=== PATIENT | female | born 1945 | race Caucasian/White ===

== ENCOUNTER 2019-03-05 18:11 | Inpatient (IN) | payer MEDICARE, MEDICAID, SELFPAY | END 2019-03-08 15:00 | DRG 479 | PROVIDERS: Admitting Provider Internal Medicine; Emergency Provider Emergency Medicine; PCP Internal Medicine Medical Oncology; Visit Provider Hospitalist | DX: S72.011A Unspecified intracapsular fracture of right femur, initial encounter for closed fracture (principal); W18.09XA Striking against other object with subsequent fall, initial encounter; J44.9 Chronic obstructive pulmonary disease, unspecified; R41.0 Disorientation, unspecified; T50.8X5A Adverse effect of diagnostic agents, initial encounter; H40.9 Unspecified glaucoma; D64.9 Anemia, unspecified; M19.90 Unspecified osteoarthritis, unspecified site; G62.9 Polyneuropathy, unspecified; Z87.891 Personal history of nicotine dependence; Z86.73 Personal history of transient ischemic attack (TIA), and cerebral infarction without residual deficits; Z79.82 Long term (current) use of aspirin; Z85.841 Personal history of malignant neoplasm of brain; Z85.118 Personal history of other malignant neoplasm of bronchus and lung | CPT/HCPCS: 36415; 70450; 71045; 71046; 72125; 73502; 73552; 80048; 80307; 81003; 84484; 85014; 85018; 85025; 85610; 85730; 88307; 88311; 93005; 94640; 96374; 97110; 97161; 97165; 97530; 99285; A9270; C1713; C1769; J0131; J1652; J1741; J2270; J2405; J2704; J3010; J3480; J7040 ==

== ENCOUNTER 2019-07-26 14:42 | Inpatient (IN) | payer MEDICARE, MEDICAID, SELFPAY ==
[2019-07-26] VITALS (7 sets, daily range): BP systolic 123–161; BP diastolic 68–90; PULSE 92–128; RESP 14–22; TEMP 36.6–37; O2SAT 92–98; BMI 22.4
--- NOTE | ~2019-07-26 | CT_ITS ---
EXAMINATION: CTA chest PE protocol DATE: 07/28/2019 11:54 INDICATION: Hypoxia. Rhonchi. Left subcapital femoral neck fracture. TECHNIQUE: Computed tomography angiography (CTA) of the chest was performed with 100 mL Omnipaque-350 intravenous contrast timed to evaluate the pulmonary arteries. Coronal maximum intensity projection 3D-reconstructions were created by the technologist. Automated exposure control and iterative reconst ruction technique were employed. Exam dose: 247.43 mGy-cm total exam DLP. COMPARISON: 07/26/2019 portable AP chest 06/14/2017 CT chest abdomen FINDINGS: There is diagnostic contrast enhancement of the pulmonary arteries and no evidence of pulmo nary embolism. Normal heart size. Small pericardial effusion. No thoracic aortic aneurysm or dissection is evident. There is chronic prominent right upper lung scarring and cavitation. Emphysematous changes are noted bilaterally. There is prominent patchy consolidation in the superior segment of the right lower lobe and in both l ower lobe posterior basilar segments in particular. There is mild dependent atelectasis or infiltrate of the left upper lobe. There is mild atelectasis or scarring at the base of the middle lobe. Left Port-A-Cath catheter in superior vena cava. No pleural effusion or pneumothorax. Diffuse osteopenia. 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 IMPRESSION: No CT evidence of pulmonary embolism Interval prominent bilateral lower lobe patchy consolidation involving particularly the right superio r segment and both lower lobe posterior segments Mild dependent infiltrate or atelectasis of left upper lobe and mild infiltrate or scarring at the ba se of the middle lobe Emphysema Small pericardial effusion Reviewed, dictated and finalized at Location [facility]. Reviewed, dictated and finalized at location B. IMPRESSION: No CT evidence of pulmonary embolism Interval prominent bilateral lower lobe patchy consolidation involving particul derik the right superior segment and both lower lobe posterior segments Mild dependent infiltrate or atelectasis of left upper lobe and mild infiltrate or scarring at the base of the middle lobe Emphysema Small pericardial effusion
--- NOTE | ~2019-07-26 | XR_ITS ---
EXAMINATION: XR surgery orthopedic DATE: 07/28/2019 16:33 INDICATION: Left hip pinning TECHNIQUE: 3 fluoroscopic spot images of the left hip were obtained in AP and lateral projections dur ing procedure performed by Dr. Cornell. Radiologist was not present for the imaging or procedure. The amount of fluoroscopy time used during this procedure was 3.7 minutes. COMPARISON: 07/26/2019 FINDINGS: 3 lag screws span an impacted subcapital fracture of the proximal left femur which is fixed with resi dual mild valgus and posterior angulation. There is mild widening of the left hip joint space which c ould be related to traction or the presence of a posttraumatic joint effusion. No other fractures emma ntified. Excreted contrast in the bladder likely from an earlier contrast enhanced chest CT. IMPRESSION: 1. Lag screw fixation of an impacted subcapital fracture of the proximal left femur, negative for pos toperative purposes. Reviewed, dictated and finalized at location A. IMPRESSION: 1. Lag screw fixation of an impacted subcapital fracture of the proximal left f emur, negative for postoperative purposes.
--- NOTE | ~2019-07-26 | US_ITS ---
EXAMINATION: US venous doppler LE EXAM DATE: 07/29/2019 11:11 INDICATION: Right atrial mass. TECHNIQUE: Multiple grayscale, color flow and Doppler images of the lower extremity deep venous syste ms bilaterally were obtained and reviewed. There is no prior study for comparison. FINDINGS: Right side: The right common femoral, femoral and profunda veins demonstrate normal color flow, respi ratory variation, augmentation and compressibility. Compressibility, color flow confirmed within the right popliteal, posterior tibial, peroneal, and greater saphenous veins. Left side: The left common femoral, femoral and profunda veins demonstrate normal color flow, respira tory variation, augmentation and compressibility. Compressibility, color flow confirmed within the l eft popliteal, posterior tibial, peroneal, and greater saphenous veins. IMPRESSION: 1. No lower extremity deep venous thrombosis bilaterally. Reviewed, dictated and finalized at location A.
--- NOTE | ~2019-07-26 | XR_ITS ---
XR elbow LT min 3V DATE: 07/26/2019 15:49 INDICATION: Fall. Posterior elbow abrasion. TECHNIQUE: 4 views COMPARISON: None FINDINGS: No fracture or dislocation or joint effusion. IMPRESSION: No fracture or dislocation or joint effusion Reviewed, dictated and finalized at location A.
--- NOTE | ~2019-07-26 | CT_ITS ---
EXAMINATION: CT brain wo con DATE: 07/26/2019 15:13 INDICATION: Fall. Confusion. Patient reportedly on blood thinners. TECHNIQUE: Computed tomography (CT) of the head was performed without intravenous contrast. The mA wa s adjusted according to patient size. Iterative reconstruction technique was employed. Exam dose: 52 9.67 mGy-cm total exam DLP. COMPARISON: 05/19/2019 MRI brain/brainstem 05/18/2019 CT brain FINDINGS: Chronic right parietal occipital infarct is again noted, as well as chronic small vessel is chemic changes of the cerebral white matter. Cerebral atherosclerosis. No intracranial mass lesion or hemorrhage, midline shift or mass effect. No apparent subdural or epid ural hematoma is noted. No skull fracture or bone destruction is evident. Included paranasal sinuses are unremarkable. There is opacification of mastoid air cells bilaterally, right greater than left. IMPRESSION: Chronic right parieto-occipital infarct Chronic small vessel ischemic changes of cerebral white matter Cerebral atherosclerosis Cerebral and cerebellar atrophy No acute intracranial abnormality Reviewed, dictated and finalized at Location [facility]. Reviewed, dictated and finalized at location A.
--- NOTE | ~2019-07-26 | XR_ITS ---
XR knee LT min 4V DATE: 07/26/2019 15:50 INDICATION: Left knee injury, abrasion, pain TECHNIQUE: 4 views including crosstable lateral COMPARISON: None FINDINGS: Diffuse osteopenia. No fracture or dislocation or joint effusion. No recent periosteal reaction or bone destruction. Ther e is chronic organized periosteal reaction along the femoral and tibial and fibular shafts which may be due to pulmonary osteoarthropathy and/or venous insufficiency. Joint spaces are preserved. No radiopaque intra-articular loose body or chondrocalcinosis. IMPRESSION: Osteopenia No fracture, dislocation or joint effusion Chronic organized periosteal reaction of the femoral, tibial and fibular shafts, suggesting chronic h ypertrophic pulmonary osteoarthropathy and/or venous insufficiency. Reviewed, dictated and finalized at location A. IMPRESSION: Osteopenia No fracture, dislocation or joint effusion Chronic organized periosteal reaction of the femoral, tibial and fibular shafts , suggesting chronic hypertrophic pulmonary osteoarthropathy and/or venous insu fficiency.
--- NOTE | ~2019-07-26 | XR_ITS ---
XR hip BI 2V w AP pelvis DATE: 07/26/2019 15:49 INDICATION: Fall. Bilateral hip pain, left greater than right. TECHNIQUE: AP pelvis. AP and crosstable lateral views of each hip. COMPARISON: 05/02/2019 pelvis and right hip FINDINGS: Diffuse osteopenia. The pubic symphysis and sacroiliac joints are intact. No pelvic fracture or bone destruction is evide nt. There are 3 pins through the proximal right femur for prior subcapital femoral neck fracture. There is new left subcapital femoral neck fracture on the left, with minimal displacement. IMPRESSION: New left subcapital femoral neck fracture Diffuse osteopenia Status post pinning of right subcapital femoral neck fracture Reviewed, dictated and finalized at location A.
--- NOTE | ~2019-07-26 | XR_ITS ---
XR chest 1V portable DATE: 07/26/2019 15:49 INDICATION: Fall. TECHNIQUE: Portable AP chest on 07/26/2019 at 1531 hours COMPARISON: 05/26/2021 view chest FINDINGS: Left-sided Port-A-Cath catheter tip overlies superior vena cava. Prominent right apical capping and right upper lobe volume loss and apparent scarring, as noted on . The lungs otherwise appear hyperinflated suggesting COPD. No interval pulmonary infiltrate or consolidation, pleural effusion or pulmonary vascular congestion or pneumothorax or other significant change since 05/26/2019 is noted. Diffuse osteopenia. IMPRESSION: No significant change since 05/26/2019 Reviewed, dictated and finalized at location A.
--- NOTE | ~2019-07-26 | MR_ITS ---
EXAMINATION: MR brain/brain stem wo con EXAM DATE: 07/29/2019 10:49 INDICATION: Confusion. Hip fracture. TECHNIQUE: Magnetic resonance imaging (MRI) of the brain/brain stem obtained without contrast. Reid al T1, axial diffusion, gradient echo (T2*), T1, T2, FLAIR sequences obtained. Comparison is made to prior examination from 05/18/2019. FINDINGS: There are scattered punctate foci of bilateral parieto-occipital lobe acute cortical infarc tions, likely emboli. Could be fat emboli given the left hip fracture. Cardiac embolic source also po ssible. No acute intraparenchymal mass or brain hemorrhage. There is punctate old left basal ganglia lacunar infarction. There is extensive microangiopathy. Moderate cerebral atrophy. Small old right oc cipital lobe infarction. No extra-axial collections. Flow voids are seen in the cerebral arteries on the T2 weighted sequences consistent with their expected patency. Patient has had bilateral cataract surgery. Bilateral mastoid effusions. IMPRESSION: 1. Scattered punctate acute bilateral parietal centered infarctions, consistent with embolic etiolog y. Consider fat emboli, and cardiac source. 2. Old small infarctions. 3. Microangiopathy and atrophy. Reviewed, dictated and finalized at location A. IMPRESSION: 1. Scattered punctate acute bilateral parietal centered infarctions, consisten t with embolic etiology. Consider fat emboli, and cardiac source. 2. Old small infarctions. 3. Microangiopathy and atrophy.
--- NOTE | ~2019-07-26 | XR_ITS ---
XR hand RT min 3V DATE: 07/26/2019 15:50 INDICATION: Fall. Fifth digit injury, laceration TECHNIQUE: 3 views COMPARISON: None FINDINGS: Diffuse osteopenia. No fracture or dislocation, periosteal reaction or bone destruction. No radiopaque soft tissue foreig n body is noted, other than a ring of the third digit. IMPRESSION: No fracture or dislocation is detected Reviewed, dictated and finalized at location A.
--- NOTE | ~2019-07-26 | CT_ITS ---
EXAMINATION: CT cervical spine wo con DATE: 07/26/2019 15:13 INDICATION: Fall. Head and neck injury. TECHNIQUE: Computed tomography (CT) of the cervical spine was performed without intravenous contrast. Automated exposure control and iterative reconstruction technique were employed. Exam dose: 89.95 m Gy-cm total exam DLP. COMPARISON: 03/05/2019 CT cervical spine FINDINGS: C1 and C2 are normally aligned and the odontoid process is intact. There is moderately severe degenerative disc disease at C3-4, C4-5 and C5-6. There is minimal anterolisthesis at C4-5. There is degenerative change at the apophyseal and uncovertebral joints particularly at C3-4, C4-5 an d C5-6. There is anterior and posterior fusion at C6-7. No fracture or dislocation or locked facet is evident. No prevertebral soft tissue swelling. IMPRESSION: No fracture or dislocation or locked facet. Extensive degenerative changes Reviewed, dictated and finalized at Location A. Reviewed, dictated and finalized at location A.
--- NOTE | 2019-07-26 14:48 | ED.FALL ---
HPI - Fall General Chief Complaint: Fall Stated Complaint: left hip pain Time Seen by Provider: 07/26/19 14:47 Source: patient and old records reviewed Mode of arrival: EMS Limitations: no limitations History of Present Illness HPI Narrative: The pt is a 73 y/o female who presents to the ED, via EMS, c/o a fall. Pt states that she was walking around her car when she tripped on her foot and fell. She states that she turned so she would not hit her face, but thinks she did not strike her head. She notes that she landed on her left side. She reports left hip pain and bilateral hand numbness, but denies neck pain. Pt notes that she does not take any anticoagulation therapy. She states that she has a Port-A-Cath for small-cell carcinoma, but she was diagnosed with this 5 years ago. Per old records, pt had a previous right hip fracture that occurred on 03/06/19. Pt was cared for and had right hip pinning performed by Dr. Morrissey. complaint: fall Fall from: standing Place fall occurred: street Context: tripped/slipped (Tripped over right foot) Associated symptoms (after fall): other (Bilateral hand numbness, left hip pain) Related Data Home Medications Medication Instructions Recorded Confirmed aspirin 81 mg tablet,delayed 81 mg PO DAILY 05/08/19 07/26/19 release Allergies Allergy/AdvReac Type Severity Reaction Status Date / Time tramadol Allergy Severe Unknown Verified 07/26/19 16:54 cyanocobalamin (vitamin B12) Allergy Intermediate HIVES Verified 07/26/19 16:54 Penicillins Allergy Intermediate HIVES Verified 07/26/19 16:54 codeine AdvReac Intermediate NAUSEA Verified 07/26/19 16:54 Review of Systems Review of Systems: All systems reviewed & are unremarkable except as noted in HPI and below Musculoskeletal: Musculoskeletal: Reports arthralgias (Left hip) and Denies neck pain Neurologic: Reports numbness (Bilateral hands) and Denies other (Head injury) [facility] Past Medical History Medical History (Updated 07/26/19 @ 17:55 by Loretta Whiteside MD) Anemia Arthritis Brain cancer Cataracts, bilateral Chronic headaches COPD (chronic obstructive pulmonary disease) CVA (cerebrovascular accident) DVT (deep venous thrombosis) Dyspnea Frequent falls Glaucoma H/O fracture of hip Hand fracture, right fracture HTN (hypertension) Lung cancer Peripheral neuropathy Pneumonia Port-A-Cath in place Seasonal allergies Stroke TIA (transient ischemic attack) UTI (urinary tract infection) Surgical History Surgical History (Updated 07/26/19 @ 15:00 by Uri Burt) Femoral neck fracture History of craniotomy removing tumor History of hip surgery Right hip pinning History of hysterectomy History of lung surgery History of tubal ligation Family History Family History Father Cerebrovascular accident Bladder cancer Mother Hypertension Sibling Hypertension Father Cerebrovascular accident Patient's father is Mother Family history of malignant neoplasm of kidney Acute myocardial infarction Other Cancer Social History Social History Social History: According to old records stated that she quit smoking in 2013. That she occasionally drinks 1 alcoholic beverage 1-2 drinks every 1-2 weeks. She tells me she occasionally drinks wine. She lives alone. From her old records patient has a daughter. And her sister is a durable power deputy commonwealth's attorney. Code status unknown. She is . From her old charts she is listed as a full code Smoking packs per day: 1.5 Smoking cigarettes per day: 30.0 Years smoked: 41 Smoking pack-years: 61.50 Smoking status: Former smoker Tobacco type: cigarettes Second hand tobacco smoke exposure: No Smoking end date: 05/14/13 Alcohol intake: current Substance use: unknown Gender identity (if verbalized by the patient):
--- NOTE | 2019-07-26 14:56 | ECG_ITS ---
Measurements Intervals [place] Rate: 93 P: 67 MI: 199 QRS: 57 QRSD: 80 T: 75 QT: 360 QTc: 450 Interpretive Statements SINUS RHYTHM POSSIBLE LEFT ATRIAL ENLARGEMENT BASELINE ARTIFACT- I, III, AVR, AVL BORDERLINE ECG Electronically Signed On 07-26-2019 15:51:49 CDT by Jorge Joshi D.O.
--- NOTE | 2019-07-26 15:17 | PC.NURSE ---
Patient in radiology at this time.
[2019-07-26] MEDS: ONDANSETRON INJ 4 MG/2 ML VIAL IV PUSH (15:51)
[2019-07-26] MEDS: MORPHINE SULFATE 4 MG/ML INJ 2 MG IV PUSH (15:51)
--- NOTE | 2019-07-26 15:56 | PC.NURSE ---
BLOOD SENT TO LAB, PT WAS GONE TO SCAN AT TIME OF ORDER AND JUST NOW RETURNED TO GET BLOOD AND SEND IT.
[2019-07-26 15:58] LABS: Basophils Percent Auto 0.5 % (0.2-1.2); Eosinophils Absolute Auto 0.1 K/mm3 (0-0.3); Eosinophils Percent Auto 0.9 % (0-4.4); Hematocrit 36.6 % (37.0-47.0); Hemoglobin 11.2 g/dL (12.0-15.0); Immature Granulocyte Absolute 0.03 K/mm3 (0.00-0.031); Immature Granulocyte Percent A 0.5 % (0-0.5); Lymphocytes Absolute Auto 1.82 K/mm3 (0.9-3.2); Lymphocytes Percent Auto 27.7 % (18.3-44.2); Mean Corpuscular HGB Conc 30.6 g/dl (32-36); Mean Corpuscular Hemoglobin 27.2 pg (26-34); Mean Corpuscular Volume 88.8 fl (80-100); Mean Platelet Volume 10.4 fl (7.4-10.4); Monocytes Absolute Auto 0.6 K/mm3 (0.1-0.6); Monocytes Percent Auto 9.1 % (2.6-8.5); Neutrophils Percent Auto 61.3 % (45.5-73.1); Platelet Count Result 296 k/mm3 (150-375); Red Blood Count 4.12 M/mm3 (4.2-5.4); Red Cell Distribution Width 15.4 % (11.5-14.5); White Blood Count 6.6 K/mm3 (4.5-10.0)
[2019-07-26 16:09] LABS: Prothrombin Time 12.4 Seconds (11.1-14.7)
[2019-07-26 16:10] LABS: Alanine Aminotransferase 17 U/L (4-35); Albumin Level 3.8 g/dL (3.5-5.1); Alkaline Phosphatase 75 U/L (38-126); Aspartate Amino Transferase 27 U/L (14-36); Bilirubin,Total 0.6 mg/dL (0.2-1.3); Blood Urea Nitrogen 14 mg/dL (7-17); Calcium 8.9 mg/dL (8.4-10.2); Carbon Dioxide 30 mmol/L (22-30); Chloride 101 mmol/L (98-107); Estimated Glomerular Filt Rate > 60; Glucose 92 mg/dL (65-105); Partial Thromboplastin Time 27.5 SECONDS (22.3-36.8); Sodium 137 mmol/L (137-145)
--- NOTE | 2019-07-26 17:52 | ADMGEN ---
This patient, Catia Chan, was admitted to 3 [facility] Surg Room 317-01. Patient/family oriented to hospital policies and general routines including ID bracelet, bed and alarms, visiting hours, pain management, procedures, bathroom and other care routines, personal items, smoking policy, room service/diet, and visiting hours. Valuables list has been completed. Information on how to activate the Rapid Response Team has been discussed. Patient/Family are encouraged to report perceived risks to care and to ask questions if they do not understand what they are told or what they should do.
[2019-07-26] MEDS: LACTATED RINGERS 1,000 ML 125 ML IV CONT (18:08)
[2019-07-26] MEDS: MORPHINE SULFATE 4 MG/ML INJ IV PUSH (20:42)
--- NOTE | 2019-07-26 21:37 | PM.IMHP ---
H&P: HPI History of Present Illness Chief complaint: left subcapital femoral neck fracture Narrative: Catia Chan is a 73 year old female who presented to the emergency department with complaints of falls. She has a history of falling. Her last admission she was here due to a fall. The patient stated this happened approximately 2 days ago when she is walking around her car she tripped and fell. She denies hitting her head. She tells me that she has been driving. Patient does not take any anticoagulation therapy she was diagnosed with small cell carcinoma approximately 5 years ago but is not on any medication now. Patient had a previous right hip fracture that occurred on 03/06/2019. A right hip pinning was performed per Dr. levin at that time. Patient was given Zofran and morphine in the emergency room. She has been falling asleep during this interview and has not been answering all the questions for me. She has also been started on IV fluids. Dr. Cornell has been consulted for the left hip fracture that was seen on her films. He agreed to consult repair. Date of service 07/26/2019 Review of Systems Review of Systems: All systems reviewed & are unremarkable except as noted in HPI and below ROS unobtainable: unobtainable due to mental status Constitutional: Constitutional: Reports as per HPI and Reports no additional constitutional complaints Eyes: Eyes: Reports as per HPI and Reports no additional eye complaints ENT: Reports system reviewed and no additional complaints, except as documented and Reports Normal hearing present Cardiovascular: Cardiovascular: Reports no additional cardiovascular complaints Respiratory: Respiratory: Reports no additional respiratory complaints and Reports no additional respiratory complaints Gastrointestinal: Gastrointestinal: Reports as per HPI and Reports no additional gastrointestinal complaints Musculoskeletal: Musculoskeletal: Reports no additional musculoskeletal complaints Integumentary/Breasts: Skin/Breast: Reports system reviewed and no additional complaints, except as docu and Reports as per HPI Neurologic: Reports system reviewed and no additional complaints, except as documented, Reports as per HPI and Reports Normal hearing present Psychiatric: Psychiatric: Reports no additional psychiatric complaints and Reports as per HPI Endocrine: Endocrine: Reports no additional endocrine complaints Hematologic/Lymphatic: Hematologic/Lymphatic: Reports no additional hematologic/lymphatic complaints Allergic/Immunologic: Allergic/Immunologic: Reports no additional allergic/immunologic complaints PMFSH Past Medical History Medical History Anemia Arthritis Brain cancer Cataracts, bilateral Chronic headaches COPD (chronic obstructive pulmonary disease) CVA (cerebrovascular accident) DVT (deep venous thrombosis) Dyspnea Frequent falls Glaucoma H/O fracture of hip Hand fracture, right fracture HTN (hypertension) Lung cancer Peripheral neuropathy Pneumonia Port-A-Cath in place Seasonal allergies Stroke TIA (transient ischemic attack) UTI (urinary tract infection) Surgical History Surgical History Femoral neck fracture History of craniotomy removing tumor History of hip surgery Right hip pinning History of hysterectomy History of lung surgery History of tubal ligation Family History Family History Father Cerebrovascular accident Bladder cancer Mother Hypertension Sibling Hypertension Father Cerebrovascular accident Patient's father is Mother Family history of malignant neoplasm of kidney Acute myocardial infarction Other Cancer Social History Social History (Updated 07/26/19 @ 21:50 by Dana Petit NP) Social History: According to old records
[2019-07-26] MEDS: levETIRAcetam ORAL SOL 500 MG/5 ML UDC 750 MG PO (22:16)
[2019-07-27] VITALS (14 sets, daily range): BP systolic 117–128; BP diastolic 60–78; PULSE 108–122; RESP 16–20; TEMP 37–37.3; O2SAT 88–95
[2019-07-27] MEDS: MORPHINE SULFATE 4 MG/ML INJ IV PUSH ×2 (02:08→07:55)
[2019-07-27] MEDS: LACTATED RINGERS 1,000 ML 125 ML IV CONT (02:10)
[2019-07-27 06:14] LABS: Basophils Percent Auto 0.1 % (0.2-1.2); Eosinophils Percent Auto 0.2 % (0-4.4); Hematocrit 36.9 % (37.0-47.0); Hemoglobin 11.5 g/dL (12.0-15.0); Immature Granulocyte Absolute 0.04 K/mm3 (0.00-0.031); Immature Granulocyte Percent A 0.3 % (0-0.5); Lymphocytes Absolute Auto 0.79 K/mm3 (0.9-3.2); Lymphocytes Percent Auto 5.8 % (18.3-44.2); Mean Corpuscular HGB Conc 31.2 g/dl (32-36); Mean Corpuscular Hemoglobin 27.3 pg (26-34); Mean Corpuscular Volume 87.4 fl (80-100); Mean Platelet Volume 9.6 fl (7.4-10.4); Monocytes Absolute Auto 0.7 K/mm3 (0.1-0.6); Monocytes Percent Auto 4.9 % (2.6-8.5); Neutrophils Absolute Auto 12.2 K/mm3 (1.3-6.7); Neutrophils Percent Auto 88.7 % (45.5-73.1); Platelet Count Result 244 k/mm3 (150-375); Red Blood Count 4.22 M/mm3 (4.2-5.4); Red Cell Distribution Width 15.3 % (11.5-14.5); White Blood Count 13.7 K/mm3 (4.5-10.0)
[2019-07-27 06:25] LABS: Alanine Aminotransferase 18 U/L (4-35); Albumin Level 3.3 g/dL (3.5-5.1); Alkaline Phosphatase 78 U/L (38-126); Aspartate Amino Transferase 21 U/L (14-36); Bilirubin,Total 1.1 mg/dL (0.2-1.3); Blood Urea Nitrogen 11 mg/dL (7-17); Calcium 8.4 mg/dL (8.4-10.2); Carbon Dioxide 28 mmol/L (22-30); Chloride 102 mmol/L (98-107); Estimated CRCL calculation 60 ml/min; Estimated Glomerular Filt Rate > 60; Glucose 120 mg/dL (65-105); Magnesium 1.7 mg/dL (1.6-2.3); Potassium 4.3 mmol/L (3.4-5.0); Sodium 135 mmol/L (137-145)
[2019-07-27] MEDS: MAGNESIUM SULF 2 GM/WATER 50ML 2 GM/50 ML BAG IVPB (09:08)
[2019-07-27] MEDS: levETIRAcetam IV 750 MG in DEXTROSE 5% 100 ML 430 MG IVPB ×2 (10:25→21:14)
--- NOTE | 2019-07-27 10:28 | PM.IMPN ---
Progress Note: A&P Assessment and Plan (1) Closed fracture of neck of left femur: Qualifiers: Encounter type: initial encounter Qualified Code(s): S72.002A - Fracture of unspecified part of neck of left femur, initial encounter for closed fracture Code(s): S72.002A - Fracture of unspecified part of neck of left femur, initial encounter for closed fracture Status: Acute Assessment and Plan: Left subcapital femoral neck fracture after a fall. It is reported she was walking outside to her car when she tripped and fell. Would recommend holding narcotics for now as she is lethargic this morning. Dr Cornell consulted - appreciate recommendations. (2) Focal seizure: Code(s): R56.9 - Unspecified convulsions Status: Chronic Assessment and Plan: Continue Keppra. Seizure precautions. (3) Stroke: Code(s): I63.9 - Cerebral infarction, unspecified Status: Chronic Assessment and Plan: History of old CVA. CT shows chronic right parietal-occipital infarct. ASA held in light of possible surgical intervention. (4) Murmur: Code(s): R01.1 - Cardiac murmur, unspecified Status: Acute Assessment and Plan: With sinus tachycardia. Echocardiogram ordered. (5) Altered mental status: Code(s): R41.82 - Altered mental status, unspecified Status: Acute Assessment and Plan: CT brain with no acute intracranial abnormalities. History of old stroke. Vital signs are stable aside from sinus tachycardia which may be secondary to pain from fracture. Obtain urine culture. May be related to narcotics. Hold off on narcotics for now. Records indicate she may be experiencing signs of dementia. She is known to live at home and has been found unresponsive in the past. A note from PCP last month 6 suggests she has been getting more confused at times, even hallucinating, unreliable about taking medications, assisted-living was discussed and was not felt to be safe for her to be living home alone. (6) COPD (chronic obstructive pulmonary disease): Code(s): J44.9 - Chronic obstructive pulmonary disease, unspecified Status: Chronic Assessment and Plan: Does not appear to be on any maintenance inhalers. CXR shows hyperinflation without consolidation or effusions. Continue supplemental O2 as needed to keep oxygen saturations > 90%. Nebulized bronchodilators with atrovent and xopenex. Subjective Date/time seen: 07/27/19 0915 Interval history: Patient is a 73yo F admitted with acute left subcapital femoral neck fracture. She is asleep time my exam and a bit difficult to arouse, but she does wake up look at me. Moaning, does not answer questions. Review of Systems Review of Systems: ROS unobtainable: unobtainable due to mental status Exam Narrative: Exam Narrative: General: Female resting supine in bed in no acute distress, lethargic. HEENT: Normocephalic, oral mucosa tacky. Cardiovascular: Rhythm is regular. Rate is tachycardic. Telemetry review shows sinus tachycardia HR 110 at time my exam. Respiratory: Decreased breath sounds anterior and laterally due to poor effort. Respirations even and nonlabored. Tolerating room air. Abdomen: Soft, non-tender, non-distended, bowel sounds present. Extremities: Peripheral pulses intact. No edema or erythema. Neuro: Unable to assess. Patient is sleepy but wakes to verbal stimuli and touch. She woke up and moans, not able to answer any of my questions. Objective Data Vital Signs Vital Signs: Last Vital Signs Temp 98.6 F 07/27/19 06:00 Pulse 122 H 07/27/19 06:00 Resp 16 07/27/19 06:00 BP 128/78 07/27/19 06:00 Pulse Ox 94 07/27/19 06:00 Intake/Output Intake/Output: Intake & Output 07/24/19 0
[2019-07-27 10:52] LABS: Add Urine Microscopic? YES; Appearance Urine Clear (Clear); Bacteria Urine Trace /hpf; Bilirubin Urine Negative (Negative); Blood Urine Negative (Negative); Color Urine Yellow (Yellow); Glucose Urine UA Negative (Negative); Ketones Urine Negative (Negative); Leukocyte Esterase Ur Negative LEU/UL (Negative); Mucus Urine Few /lpf; Nitrate Urine Negative (Negative); Protein Urine 1+ mg/dL (Negative); Specific Grav Ur 1.018 (1.001-1.035); Squamous Epithelial Cell Urine Rare /hpf (Few)
[2019-07-27] MEDS: LACTATED RINGERS 1,000 ML 80 ML IV CONT (12:54)
[2019-07-27] MEDS: IPRATROPIUM BR 0.02% INH SOLN 0.5 MG/2.5 ML VIAL INHALATION ×2 (15:19→22:00)
--- NOTE | 2019-07-27 16:16 | PM.PNORT ---
Progress Note: A&P Additional Plan PATIENT SEEN AND CONSULT DICTATED. BRIEF, SHE IS A 73 YO FEMALE WITH HX OF LEFT FEMORAL NECK FRACTURE WITH VALGUS IMPACTION. SHE WILL REQUIRE PERCUTANEOUS PINNING LEFT FEMORAL NECK ONCE CLEARED BY MEDICINE. I SPOKE TO THE SISTER TODAY WHO IS THE POA OF THE PATIENT. WE DISCUSSED THE PROCEDURE IN DETAIL AND THE RISKS OF SURGERY. SHE AGREES WITH THE PLAN OF TREATMENT. WE WILL PROCEED. Time Spent With Patient Time with patient: 15 - 25 minutes Subjective Subjective Date/Time Seen: 07/27/19 16:16 Objective Data Vital Signs Vital Signs: Vital Signs - 24 hr 07/26/19 16:30 07/26/19 17:28 07/26/19 18:02 Temperature Pulse Rate 98 102 H 111 H Respiratory Rate 20 18 22 H Blood Pressure 130/81 135/90 123/73 Pulse Oximetry 92 93 95 07/26/19 20:00 07/26/19 21:28 07/27/19 00:00 Temperature 37.0 C Pulse Rate 128 H 124 H 115 H Respiratory Rate 18 Blood Pressure 126/68 Pulse Oximetry 93 07/27/19 04:00 07/27/19 06:00 07/27/19 08:00 Temperature 37.0 C Pulse Rate 119 H 122 H 118 H Respiratory Rate 16 Blood Pressure 128/78 Pulse Oximetry 94 07/27/19 12:00 07/27/19 14:00 07/27/19 15:25 Temperature 37.3 C Pulse Rate 111 H 118 H 110 H Respiratory Rate 16 20 Blood Pressure 117/60 Pulse Oximetry 88 L 07/27/19 15:32 Temperature Pulse Rate 115 H Respiratory Rate 20 Blood Pressure Pulse Oximetry Intake/Output Intake/Output: Intake & Output 07/24/19 07/25/19 07/26/19 07/27/19 23:59 23:59 23:59 23:59 Intake Total 100 2207.5 Output Total 250 Balance 100 1957.5 Meds/Results Medications: Active Medications Generic Name Dose Route Start Last Admin Trade Name Freq PRN Reason Stop Dose Admin Acetaminophen 1,000 mg in 100 mls @ 400 mls/hr 07/26/19 16:58 07/27/19 15:35 Ofirmev 1,000 Mg Ivpb IVPB 07/27/19 16:59 400 mls/hr Q6H PRN Administration Mild Pain (1-3) or Fever Lactated Ringer's 1,000 mls @ 80 mls/hr 07/26/19 17:00 07/27/19 12:54 Lr - Lactated Ringers Iv IV CONT 80 mls/hr .[id number] JAYASHREE Administration Levetiracetam 750 mg/ Dextrose 107.5 mls @ 430 mls/hr 07/27/19 10:15 07/27/19 10:40 IVPB Infused Q12HR JAYASHREE Infusion Ipratropium Wheeler 0.5 mg 07/27/19 14:00 07/27/19 15:19 Atrovent Neb INHALATION 0.5 mg Q6HRT JAYASHREE Administration Levalbuterol HCl 1.25 mg 07/27/19 14:00 07/27/19 15:19 Xopenex 1.25 Mg/0.5 Ml INHALATION 1.25 mg Q6HRT JAYASHREE Administration Morphine Sulfate 4 mg 07/26/19 16:58 07/27/19 07:55 Morphine Sulfate Inj IV PUSH 4 mg Q2H PRN Administration Pain Rated 7-10 Ondansetron HCl 4 mg 07/26/19 16:58 Zofran Inj IV PUSH Q4H PRN Nausea Radiology Results: ITS Impressions Head CT 07/26/19 15:37 IMPRESSION: Chronic right parieto-occipital infarct Chronic small vessel ischemic changes of cerebral white matter Cerebral atherosclerosis Cerebral and cerebellar atrophy No acute intracranial abnormality Cervical Spine CT 07/26/19 15:48 IMPRESSION: No fracture or dislocation or locked facet. Extensive degenerative changes Chest X-Ray 07/26/19 16:19 IMPRESSION: No significant change since 05/26/2019 Hip/Pelvis X-Ray 07/26/19 16:21 IMPRESSION: New left subcapital femoral neck fracture Diffuse osteopenia Status post pinning of right subcapital femoral neck fracture Knee X-Ray 07/26/19 16:23 IMPRESSION: Osteopenia No fracture, dislocation or joint effusion Chronic organized periosteal reaction of the femoral, tibial and fibular shafts, suggesting chronic hypertrophic pulmonary osteoarthropathy and/or venous insufficiency. Elbow X-Ray 07/26/19 16:26 IMPRESSION: No fracture or dislocation or joint effusion Hand X-Ray 07/26/19 16:26 IMPRESSION: No fracture or dislocation is detected Labs Labs: Laboratory Results - last 24 hr 07/27/19 07/27/19 03
--- NOTE | 2019-07-27 19:45 | HP_ITS ---
DATE OF SERVICE: 07/26/2019 HISTORY OF PRESENT ILLNESS: This is a 73-year-old female who fell injuring her left hip. She was sent to the emergency department, diagnosed with a left femoral neck fracture, which was minimally displaced. She was then sent to the floor and admitted by medicine services and orthopedic consultation was requested. She has a history of right subcapital fracture that was fixed by Dr. Sapp in February. She currently complains of only left hip pain. Denies any right hip pain. Denies any back pain or any neck pain. Denies any other lower or upper extremity pain aside from the left hip. PAST MEDICAL HISTORY: Anemia, arthritis, breast cancer, cataracts, COPD, headaches, DVT, stroke, shortness of breath, frequent falls, glaucoma, right hip fracture, hypertension, lung cancer, pneumonia, allergies, urinary tract infection. FAMILY HISTORY: Bladder cancer, hypertension, stroke, myocardial infarct. SOCIAL HISTORY: She does not smoke. She quit in 2013. She drinks on occasion. She lives on her own. REVIEW OF SYSTEMS: She denies currently any severe shortness of breath or chest pain. Denies any abdominal pain, nausea, vomiting, diarrhea, or headache. She complains only of left hip pain. PHYSICAL EXAMINATION: The left hip was examined. She has pain with minimal passive motion of the left hip. She has tenderness over the greater trochanter. She has no masses in the thigh. She has no tenderness below the hip and thigh. The knee is nontender. There is no effusion. She has adequate range of motion and no discomfort in the knee, otherwise stable exam. Tib-fib, foot and ankle are nontender. There is no deformity. She dorsi and plantar flexes the left foot with some weakness in dorsiflexion. Dorsalis pedis pulse 2+, posterior tib pulse 2+. The right hip was examined. She has a well-healed scar on the lateral side of the hip region. She has no tenderness in the hip region. She has no pain with passive and active range of motion. She has no thigh masses and the femur is nontender. She has no tenderness to the knee. The knee range of motion is smooth without any pain. She has otherwise stable ligamentous exam. The tib-fib, foot and ankle are nontender. There are no deformities. Her dorsalis pedis pulses 2+, posterior tib pulse 2+. Sensation is intact. Upper extremity examination, she elevates both upper extremities. She has no tenderness in the shoulders, arms, elbows, forearms, wrist, and hands. The neck is nontender. Thoracic spine, lumbar spine, sacroiliac region and coccyx are nontender. IMAGING: X-rays show a valgus impacted left femoral neck fracture. PLAN: Plan is for percutaneous pinning of the left femoral neck. She has a history of seizure disorder and some cardiovascular disorder, so she needs to be cleared by medicine first. Plan will be to perform this tomorrow once she is cleared by medical services. I talked to the patient and she understands and is in agreement with current care. We discussed the possibility of DVT and PE. We also discussed the possibility of infection, nonunion and avascular necrosis and the possibility of further surgery, if she develops avascular necrosis to the femoral head, which would consist of the hip replacement. She understands this as well. We will go ahead and proceed once she is cleared. Josr I MT: Rina
[2019-07-28] VITALS (27 sets, daily range): BP systolic 80–129; BP diastolic 50–78; PULSE 100–132; RESP 16–24; TEMP 36.6–37.5; O2SAT 87–98
--- NOTE | 2019-07-28 | ECHO_ITS ---
Patient Info Name: Catia Chan Age: 73 years : 1945 Gender: Female Ht: 63 in Wt: 126 lbs BSA: 1.60 m2 HR: 109 bpm BP: 94 / 50 mmHg Technical Quality: Fair Exam Date: 07/28/2019 10:42 AM Exam Location: [facility] Patient Status: Inpatient Admit Date: 07/26/2019 Staff Ordering Physician: Dana Petit NP Marine Firer: Uri Alejandre RDCS, RT Attending Provider: Verona Blackman PA-C Referring Physician: Marisabel SOLIS; Exam Type: CA echo doppler color flow Study Info Indications R01.1 - Cardiac murmur, unspecified Complete two-dimensional, color flow and Doppler transthoracic echocardiogram is performed. Summary 1. Left ventricular chamber dimension is normal. 2. Left ventricular systolic function is normal, estimated at 60-65%. 3. The left ventricular diastolic function is grade I diastolic dysfunction. 4. E/e' 10 is mildly elevated. 5. Large mobile echogenic mass that is not well characterized noted in right atrium. Consider MACARENA for better visualization. 6. There is mild to moderate tricuspid valve regurgitation. 7. Moderate pulmonary hypertension, estimated pulmonary arterial systolic pressure is 56 mmHg. 8. Dilated inferior vena cava with <50% collapse upon inspiration consistent with significantly elevated right atrial pressure, 15 mmHg. Left Ventricle E/e' 10 is mildly elevated. Left ventricular chamber dimension is normal. Left ventricular systolic function is normal, estimated at 60-65%. The left ventricular diastolic function is grade I diastolic dysfunction. Right Ventricle Right ventricular chamber dimension is normal. Right ventricular systolic function is normal. Left Atria Left atrial chamber dimension is normal. Right Atria Large mobile echogenic mass that is not well characterized noted in right atrium. Consider MACARENA for better visualization. Right atrial chamber dimension is not well visualized. Aortic Valve Cannot determine number of aortic valve leaflets. The aortic valve is not well visualized. There is no aortic valve stenosis. There is no aortic valve regurgitation. Pulmonic Valve The pulmonic valve is not well visualized. Mitral Valve There is no mitral valve stenosis. There is no mitral valve regurgitation. Tricuspid Valve There is mild to moderate tricuspid valve regurgitation. Moderate pulmonary hypertension, estimated pulmonary arterial systolic pressure is 56 mmHg. Pericardium/Pleural There is small circumferential pericardial effusion. Inferior Vena Cava Dilated inferior vena cava with <50% collapse upon inspiration consistent with significantly elevated right atrial pressure, 15 mmHg. Aorta The aortic root size at the sinus of Valsalva is normal. Left Ventricular Outflow Tract Name Value Normal LVOT 2D LVOT Diameter 2.1 cm LVOT Doppler LVOT Peak Gradient 3 mmHg LVOT Mean Gradient 1 mmHg LVOT VTI 14 cm LVOT VTI/AV VTI Ratio 0.8 LVOT Stroke Volume 48 ml LVOT
[2019-07-28] MEDS: IPRATROPIUM BR 0.02% INH SOLN 0.5 MG/2.5 ML VIAL INHALATION ×3 (02:57→20:36)
[2019-07-28] MEDS: LACTATED RINGERS 1,000 ML 80 ML IV CONT (03:23)
[2019-07-28 06:19] LABS: Basophils Percent Auto 0.3 % (0.2-1.2); Eosinophils Percent Auto 0.1 % (0-4.4); Hematocrit 31.6 % (37.0-47.0); Hemoglobin 9.8 g/dL (12.0-15.0); Immature Granulocyte Absolute 0.06 K/mm3 (0.00-0.031); Immature Granulocyte Percent A 0.4 % (0-0.5); Lymphocytes Absolute Auto 0.66 K/mm3 (0.9-3.2); Lymphocytes Percent Auto 4.6 % (18.3-44.2); Mean Corpuscular Hemoglobin 27.3 pg (26-34); Mean Platelet Volume 10.3 fl (7.4-10.4); Monocytes Absolute Auto 0.6 K/mm3 (0.1-0.6); Neutrophils Percent Auto 90.6 % (45.5-73.1); Platelet Count Result 182 k/mm3 (150-375); Red Blood Count 3.59 M/mm3 (4.2-5.4); Red Cell Distribution Width 15.8 % (11.5-14.5); White Blood Count 14.3 K/mm3 (4.5-10.0)
[2019-07-28] MEDS: levETIRAcetam IV 750 MG in DEXTROSE 5% 100 ML 430 MG IVPB ×2 (08:39→21:08)
[2019-07-28] MEDS: MAGNESIUM SULF 2 GM/WATER 50ML 2 GM/50 ML BAG IVPB (09:09)
[2019-07-28 10:50] LABS: Glucose Point of Care 101 (65-105)
--- NOTE | 2019-07-28 10:57 | PM.IMPN ---
Progress Note: A&P Assessment and Plan (1) Altered mental status: Qualifiers: Altered mental status type: unspecified Qualified Code(s): R41.82 - Altered mental status, unspecified Code(s): R41.82 - Altered mental status, unspecified Status: Acute Assessment and Plan: CT brain with no acute intracranial abnormalities. History of old stroke. UA negative nitrite, negative esterase. Urine culture pending. Differential includes stroke (history of prior stroke), metabolic encephalopathy (narcotics, ?aspiration) superimposed on a baseline of dementia. Afebrile, mild leukocytosis. CXR on arrival with chronic findings and no consolidations/effusions. Plan: Stat CTA to evaluate for a new pneumonia/aspiration? MRI brain. Ammonia, ABG. Blood sugar is 101. Discussed case with Dr Olmedo. - Confirmed DNR code status with patient's sister, VERONICA. Edit: Contacted patient's sister and POA, Berenice, via telephone this afternoon for an update on the patient's condition. Discussed at length the severity of her condition, she verbalized understanding, and all questions answered to her satisfaction at this time. Berenice's cell number is [phone]. (2) Closed fracture of neck of left femur: Qualifiers: Encounter type: initial encounter Qualified Code(s): S72.002A - Fracture of unspecified part of neck of left femur, initial encounter for closed fracture Code(s): S72.002A - Fracture of unspecified part of neck of left femur, initial encounter for closed fracture Status: Acute Assessment and Plan: Left subcapital femoral neck fracture after a fall. It is reported she was walking outside to her car when she tripped and fell. No narcotics have been given since early yesterday morning, she is still altered this AM. See above. Dr Cornell consulted - discussed case with him today. Left hip pinning this afternoon. (3) Pneumonia: Qualifiers: Laterality: bilateral Lung location: unspecified part of lung Pneumonia type: due to unspecified organism Qualified Code(s): J18.9 - Pneumonia, unspecified organism Code(s): J18.9 - Pneumonia, unspecified organism Status: Acute Assessment and Plan: Chest XR on arrival with no consolidation, chest CTA today with new interval prominent bilateral patchy consolidation, no PE. Aspiration? Patient's sister reports she has a history of dysphagia. Blood cultures obtained (only 1 was obtained prior to going to pre-op). Started IV vancomycin and ertapenem. Continue nebulized bronchodilators and pulmozyme, supplemental O2. (4) Right atrial mass: Code(s): I51.89 - Other ill-defined heart diseases Status: Acute Assessment and Plan: Echocardiogram demonstrated a large mobile echogenic mass that is not well characterized noted in the right atrium. Cardiology consulted -appreciate recommendations. (5) COPD (chronic obstructive pulmonary disease): Qualifiers: COPD type: unspecified COPD Qualified Code(s): J44.9 - Chronic obstructive pulmonary disease, unspecified Code(s): J44.9 - Chronic obstructive pulmonary disease, unspecified Status: Chronic Assessment and Plan: Does not appear to be on any maintenance inhalers. CXR on arrival showed hyperinflation without consolidation or effusions and other chronic changes. Continue supplemental O2 as needed to keep oxygen saturations > 90%. Nebulized bronchodilators with atrovent and xopenex. Pulmozyme. CTA chest. (6) Lung cancer: Qualifiers: Laterality: unspecified laterality Lung location: unspecified part of lung Qualified Code(s): C34.90 - Malignant neoplasm of unspecified part of unspecified bronchus or lung Code(s): C34.90 - Malignant neoplasm of unspecified part of unspecified bronch
[2019-07-28 11:02] LABS: Alveolar/Arterial O2 Gradient 118.9 mmHg; Base Excess ABG 0.5 mEq/l (+/-2.0); Fractional Inspired Oxygen 32 %; HCO3 ABG 24.6 mEq/l (22.0-26.0); Oxygen Content ABG 14.7 %vol (16.0-22.0); Oxygen Saturation ABG 93.5 % (95.0-100.0); Oxyhemoglobin 91.7 % THb (90.0-100.0); PCO2 ABG 37.7 mmHg (35.0-45.0); PO2 ABG 65.2 mmHg (80.0-100.0); PO2 FiO2 Ratio Arterial Blood 2.04 %; Total Hemoglobin 11.4 g/dL (12.0-18.0); pH ABG 7.432 (7.350-7.450)
[2019-07-28 11:04] LABS: Device NASAL CANNULA; Modified Allen's Test Pass; Site Drawn RIGHT RADIAL
[2019-07-28 11:42] LABS: Ammonia < 9 umol/L (9-30)
--- NOTE | 2019-07-28 13:24 | WPDANESEPP ---
Anes - Eval Pre Procedure Procedure: Operation Date: 07/28/19 15:00 Proposed Procedures p LEFT HIP PINNING - Ministerio Cornell MD Date/Time: 07/28/19 13:24 Pre Op Diagnosis: left subcapital femoral neck fracture Patient Data Age: 73 Gender: F Height: 1.6 m Weight: 57.6 kg Last Vital Signs Temp 36.6 C 07/28/19 06:00 Pulse 114 H 07/28/19 10:05 Resp 20 07/28/19 10:05 BP 104/50 L 07/28/19 11:17 Pulse Ox 94 07/28/19 09:59 Allergies Allergy/AdvReac Type Severity Reaction Status Date / Time tramadol Allergy Severe Unknown Verified 07/26/19 16:54 cyanocobalamin (vitamin B12) Allergy Intermediate HIVES Verified 07/26/19 16:54 Penicillins Allergy Intermediate HIVES Verified 07/26/19 16:54 codeine AdvReac Intermediate NAUSEA Verified 07/26/19 16:54 Home Medications Medication Instructions Recorded Confirmed Type aspirin 81 mg tablet,delayed 81 mg PO DAILY 05/08/19 07/26/19 History release levetiracetam 100 mg/mL oral 750 mg PO Q12H #473 ml 06/20/19 07/26/19 Rx solution Laboratory Tests 07/28/19 07/28/19 07/28/19 06:06 10:46 10:53 WBC 14.3 K/mm3 H K/mm3 (4.5-10.0) RBC 3.59 M/mm3 L M/mm3 (4.2-5.4) Hgb 9.8 g/dL L g/dL (12.0-15.0) Hct 31.6 % L % (37.0-47.0) MCV 88.0 fl fl (80-100) MCH 27.3 pg pg (26-34) MCHC 31.0 g/dl L g/dl (32-36) RDW 15.8 % H % (11.5-14.5) Plt Count 182 k/mm3 k/mm3 (150-375) MPV 10.3 fl fl (7.4-10.4) Immature Gran % (Auto) 0.4 % % (0-0.5) Neut % (Auto) 90.6 % H % (45.5-73.1) Lymph % (Auto) 4.6 % L % (18.3-44.2) [place] % (Auto) 4.0 % % (2.6-8.5) Eos % (Auto) 0.1 % % (0-4.4) Baso % (Auto) 0.3 % % (0.2-1.2) Lymph # (Auto) 0.66 K/mm3 L K/mm3 (0.9-3.2) [place] # (Auto) 0.6 K/mm3 K/mm3 (0.1-0.6) Eos # (Auto) 0.0 K/mm3 K/mm3 (0-0.3) Baso # (Auto) 0.0 K/mm3 K/mm3 (0.0-0.1) Abs Immat Gran (auto) 0.06 K/mm3 H K/mm3 (0.00-0.031) Absolute Neuts (auto) 13.0 K/mm3 H K/mm3 (1.3-6.7) Absolute Nucleated RBC 0.0 K/mm3 K/mm3 (0.0-0.012) Nucleated RBC % 0.0 % % (0.0-0.2) Puncture Site Right radial ABG pH 7.432 (7.350-7.450) ABG pCO2 37.7 mmHg mmHg (35.0-45.0) ABG pO2 65.2 mmHg L mmHg (80.0-100.0) ABG PO2/FiO2 Ratio 2.04 % % ABG HCO3 24.6 mEq/l mEq/l (22.0-26.0) ABG O2 Saturation 93.5 % L % (95.0-100.0) ABG O2 Content 14.7 %vol L %vol (16.0-22.0) ABG Base Excess 0.5 mEq/l mEq/l (+/-2.0) A-a Gradient 118.9 mmHg mmHg Oxyhemoglobin 91.7 % THb % THb (90.0-100.0) Total Hemoglobin 11.4 g/dL L g/dL (12.0-18.0) O2 Delivery Device Nasal cannula O2 Liters/Min 3.0 LPM LPM FiO2 32 % % POC Capillary Glucose 101 mg/dl mg/dl (65-105) Ammonia 07/28/19 11:22 WBC RBC Hgb Hct MCV MCH MCHC RDW Plt Count MPV Immature Gran % (Auto) Neut % (Auto) Lymph % (Auto) [place] % (Auto) Eos % (Auto) Baso % (Auto) Lymph # (Auto) [place] # (Auto) Eos # (Auto) Baso # (Auto) Abs Immat Gran (auto) Absolute Neuts (auto) Absolute Nucleated RBC Nucleated RBC % Puncture Site ABG pH ABG pCO2 ABG pO2 ABG PO2/FiO2 Ratio ABG HCO3 ABG O2 Saturation ABG O2 Content ABG Base Excess A-a Gradient Oxyhemoglobin Total Hemoglobin O2 Delivery Device O2 Liters/Min FiO2 POC Capillary Glucose Ammonia < 9 umol/L L umol/L (9-30) Patient hx anesthesia problems: none Family hx anesthesia problems: none
[2019-07-28] MEDS: LACTATED RINGERS 1,000 ML 30 ML IV CONT (13:45)
[2019-07-28] MEDS: ERTAPENEM 1 GM/NS 50 ML 1 GM/50 ML BAG IVPB (13:50)
--- NOTE | 2019-07-28 14:23 | SUR.PREOP ---
1345-ACCOMPANIED PT PER BED TO PREOP AREA, NOONE WITH PT. PT. KEEPS EYES CLOSED AND HAS INTERMITTENT MOANING, DOES NOT VERBALIZE NOR FOLLOW COMMANDS. NASAL 02 @ 3L/NC AND CONTINUED. RESPIRATIONS SOMEWHAT HEAVY IN NATURE, WEAK NONPRODUCTIVE COUGH. PT REPOSITIONED TO TOP OF BED AND HOB ELEVATED, SLIGHT IMPROVEMENT NOTED. SEIZURE PADS NOTED ON SIDE RAILS. ABRASIONS NOTED TO LEFT ELBOW AND LEFT KNEE AREA. EXISTING #20 IV NOTED TO RIGHT AC, 1000ML WARM LR CONNECTED TO SITE AND INFUSING WITHOUT DIFFICULTY. BRADFORD PATENT WITH ANJELICA URINE.
--- NOTE | 2019-07-28 14:26 | WPDANESEFPP ---
Anes - Eval Final PreProcedure Day of Procedure 07/28/19 14:26 Patient weight: normal Heart: tachycardia Lungs: decreased breath sounds and rhonchi Airway: Mallampati scale class II Neurological: unresponsive Last oral intake: >/= 8 hours ASA classification: IV Emergent: yes Anesthetic plan: proceed Anesthesia type and monitoring: general ETT and standard monitoring Informed Consent: The patient's anesthetic plan and its attendant risks and benefits were discussed with the patient.. Questions were solicited and answers provided to the satisfaction of the patient..
--- NOTE | 2019-07-28 14:33 | SUR.PREOP ---
1430-AUDIBLE MOIST SECRETIONS, ORALLY SUCTIONED PER KAPIL WITH THICK CREAMY COLORED MUCUS OBTAINED. SATURATION 92% ON 3L/NC AFTER SUCTIONING ORAL SECRETIONS.
--- NOTE | 2019-07-28 14:56 | SUR.PREOP ---
1450-RESTING QUIETLY, RESPIRATIONS EVEN/NONLABORED AT THIS TIME WITH NO AUDIBLE CONGESTION NOTED AT THIS TIME, SATURATION 97% ON 3L/NC.
--- NOTE | 2019-07-28 16:40 | PM.OP ---
Procedure Note - Brief Procedure Note - Brief Date of procedure: 07/28/19 Pre-op diagnosis: left subcapital femoral neck fracture Post-op diagnosis: same Procedure performed: PERCUTANEOUS PINNING LEFT FEMORAL NECK Anesthesia: GETA Surgeon: Ministerio Cornell MD LEFT FEMORAL NECK FRACTURE Estimated blood loss (mL): 10 Complications: No immediate complications Condition: stable Disposition: PACU
[2019-07-28 17:00] LABS: Glucose Point of Care 107 (65-105)
--- NOTE | 2019-07-28 17:20 | SUR.PHASEI ---
0132 - no family available in waiting room for update
--- NOTE | 2019-07-28 18:16 | OP_ITS ---
DATE OF PROCEDURE: 07/28/2019 PREOPERATIVE DIAGNOSIS: Left femoral neck fracture. POSTOPERATIVE DIAGNOSIS: Left femoral neck fracture. PROCEDURE: Closed reduction percutaneous pinning left femoral neck. ANESTHESIA: General. COMPLICATIONS: None. INDICATIONS: This is a 73-year-old female who fell injuring her left hip. She sustained a left femoral neck fracture with valgus impaction. She was indicated for percutaneous pinning, left femoral neck. DESCRIPTION OF PROCEDURE: The patient was taken to the operating room in stable condition and placed in supine position. General anesthesia was induced and she was placed on a fracture table, with gentle traction and internal rotation, the fracture was reduced to near-anatomic position, and then the left lower extremity was prepped and draped sterilely from the knee to the iliac crest. Incision was performed just distal to the flare of the greater trochanter on the proximal 1/3rd of the femur. The incision was taken down through the subcutaneous tissues and through the fascia until the muscle of the vastus lateralis was identified and it was then dissected down to bone. A guide pin was placed in a center position and it was placed to the fracture fragments. Two other guide pins were then placed in a triangular form. All 3 pins were over-drilled with a cannulated drill bit, and then 380 mm partially-threaded cancellous screws were placed through the fracture bridging the fracture fragments and they were in good position and they all had good bites. This was checked on fluoroscopy and that the fracture fragments and hardware were in good position. Once that was performed, the incision was irrigated thoroughly, and then the deep fascial layers were approximated with #0 Vicryl, subcutaneous with 2-0 Vicryl, and then 3-0 Monocryl was used to perform a running stitch, and then evie were used to close the skin. The wound was washed and placed sterile dressing. The patient was removed from the fracture table, and placed in a normal bed. She was transferred to recovery in stable condition. Josr I MT: Rina
[2019-07-28] MEDS: DORNASE ALFA INH SOLN 1 MG/ML 2.5 ML AMP 2.5 MG INHALATION (20:36)
--- NOTE | 2019-07-28 20:48 | ADMGEN ---
This patient, Catia Milligan, was admitted to [facility] Surg Room 317-01. Patient/family oriented to hospital policies and general routines including ID bracelet, bed and alarms, visiting hours, pain management, procedures, bathroom and other care routines, personal items, smoking policy, room service/diet, and visiting hours. Valuables list has been completed. Information on how to activate the Rapid Response Team has been discussed. Patient/Family are encouraged to report perceived risks to care and to ask questions if they do not understand what they are told or what they should do.
--- NOTE | 2019-07-28 20:48 | PC.NURSE ---
Upon assessment at 0900, pt was unresponsive, had coarse lung sounds. With a sternal rub she would moan. Called [facility]. See orders.
--- NOTE | 2019-07-28 20:50 | PC.NURSE ---
Pt returned from surgery at 1800. She was satting 88% on 3L02; bumped her up to 4L. Pt satting 91. Pt continues to be minimally responsive. Coarse lungs sound and gurgling sounds in throat. PO medications had been ordered post op. Orders for pt to sit up in chair and ambulate. Called Dr. Kessler to remind him that she was unable to swallow the ordered PO meds or ambulate/sit in chair as she was minimally responsive. He stated to change them what I needed. I asked for him to clarify the meds he wanted ordered as I did not feel 3 mg morphine would be appropriate given her condition, alternates to PO medications, and which of the two ordered fluids he wanted ran. He stated to call the hospitalist. I called [facility] who said Kraig would be responsible for pain meds. She made some changes including IVPB ofirmev, an order to do oropharynx suction PRN, and do not administer any PO medications at all. She also put pt on NPO diet and reminded us to call POA sister if pt condition deteriorates.
[2019-07-28] MEDS: KCL 20 MEQ/D5/0.45% SOD CHL 1,000 ML 80 ML IV CONT (21:55)
[2019-07-28 22:13] LABS: Glucose Point of Care 134 (65-105)
[2019-07-28 23:42] LABS: Glucose Point of Care 133 (65-105)
[2019-07-29] VITALS (17 sets, daily range): BP systolic 100–116; BP diastolic 57–65; PULSE 85–118; RESP 12–20; TEMP 36.3–37; O2SAT 91–100
[2019-07-29] MEDS: IPRATROPIUM BR 0.02% INH SOLN 0.5 MG/2.5 ML VIAL INHALATION ×4 (01:50→19:44)
[2019-07-29 05:48] LABS: Basophils Percent Auto 0.1 % (0.2-1.2); Hemoglobin 8.7 g/dL (12.0-15.0); Immature Granulocyte Absolute 0.05 K/mm3 (0.00-0.031); Immature Granulocyte Percent A 0.5 % (0-0.5); Lymphocytes Percent Auto 7.6 % (18.3-44.2); Mean Corpuscular Hemoglobin 26.9 pg (26-34); Mean Corpuscular Volume 89.8 fl (80-100); Mean Platelet Volume 10.2 fl (7.4-10.4); Monocytes Absolute Auto 0.6 K/mm3 (0.1-0.6); Monocytes Percent Auto 5.2 % (2.6-8.5); Neutrophils Absolute Auto 9.1 K/mm3 (1.3-6.7); Neutrophils Percent Auto 86.6 % (45.5-73.1); Platelet Count Result 178 k/mm3 (150-375); Red Blood Count 3.23 M/mm3 (4.2-5.4); Red Cell Distribution Width 15.7 % (11.5-14.5); White Blood Count 10.5 K/mm3 (4.5-10.0)
[2019-07-29 06:02] LABS: Blood Urea Nitrogen 11 mg/dL (7-17); Calcium 8.4 mg/dL (8.4-10.2); Carbon Dioxide 28 mmol/L (22-30); Chloride 105 mmol/L (98-107); Estimated CRCL calculation 52 ml/min; Estimated Glomerular Filt Rate > 60; Glucose 128 mg/dL (65-105); Magnesium 2.3 mg/dL (1.6-2.3); Phosphorus 2.9 mg/dL (2.5-4.5); Potassium 4.4 mmol/L (3.4-5.0); Sodium 135 mmol/L (137-145)
[2019-07-29 06:03] LABS: Lactic Acid 2.5 mmol/L (0.7-2.1)
[2019-07-29 06:47] LABS: Glucose Point of Care 110 (65-105)
--- NOTE | 2019-07-29 07:44 | PM.IMPN ---
Progress Note: A&P Assessment and Plan (1) Stroke: Qualifiers: CVA mechanism: unspecified Qualified Code(s): I63.9 - Cerebral infarction, unspecified Code(s): I63.9 - Cerebral infarction, unspecified Status: Acute Assessment and Plan: MRI c/w embolic strokes, acute Enoxaparin 55mg SC q [address] eval and tx (2) Altered mental status: Qualifiers: Altered mental status type: unspecified Qualified Code(s): R41.82 - Altered mental status, unspecified Code(s): R41.82 - Altered mental status, unspecified Status: Acute Assessment and Plan: CT brain with no acute intracranial abnormalities. History of old stroke. MRI brain with multiple small infarcts c/w embolic origin Anticoagulation with enoxaparin (3) Closed fracture of neck of left femur: Qualifiers: Encounter type: initial encounter Qualified Code(s): S72.002A - Fracture of unspecified part of neck of left femur, initial encounter for closed fracture Code(s): S72.002A - Fracture of unspecified part of neck of left femur, initial encounter for closed fracture Status: Acute Assessment and Plan: Left subcapital femoral neck fracture after a fall. It is reported she was walking outside to her car when she tripped and fell. No narcotics have been given since early yesterday morning, she is still altered this AM. See above. POD 1 from left hip ORIF (07/27) (4) Pneumonia: Qualifiers: Laterality: bilateral Lung location: unspecified part of lung Pneumonia type: due to unspecified organism Qualified Code(s): J18.9 - Pneumonia, unspecified organism Code(s): J18.9 - Pneumonia, unspecified organism Status: Acute Assessment and Plan: IV vancomycin and ertapenem. Continue nebulized bronchodilators and pulmozyme, supplemental O2. (5) Right atrial mass: Code(s): I51.89 - Other ill-defined heart diseases Status: Acute Assessment and Plan: Echocardiogram demonstrated a large mobile echogenic mass that is not well characterized noted in the right atrium. Cardiology consulted -appreciate recommendations. (6) COPD (chronic obstructive pulmonary disease): Qualifiers: COPD type: unspecified COPD Qualified Code(s): J44.9 - Chronic obstructive pulmonary disease, unspecified Code(s): J44.9 - Chronic obstructive pulmonary disease, unspecified Status: Chronic Assessment and Plan: Does not appear to be on any maintenance inhalers. CXR on arrival showed hyperinflation without consolidation or effusions and other chronic changes. Continue supplemental O2 as needed to keep oxygen saturations > 90%. Nebulized bronchodilators with atrovent and xopenex. Pulmozyme. CTA chest c/w pneumonia (7) Lung cancer: Qualifiers: Laterality: unspecified laterality Lung location: unspecified part of lung Qualified Code(s): C34.90 - Malignant neoplasm of unspecified part of unspecified bronchus or lung Code(s): C34.90 - Malignant neoplasm of unspecified part of unspecified bronchus or lung Status: Acute Assessment and Plan: Note in the EMR from Dr Puentes 04/16/19 reviewed. 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 Developed brain metastasis 2014 and received radiation therapy. (8) Focal seizure: Code(s): R56.9 - Unspecified convulsions Status: Chronic Assessment and Plan: On admission in May 2019, it was felt she had a seizure related to old stroke and she was started on Keppra. Continue Keppra. Seizure precautions. Subjective Date/time seen: 07/29/19 07:44 Interval hi
--- NOTE | 2019-07-29 08:49 | PCOTNOTE ---
Hold OT evaluation today Per RN. Patient is non-responsive and is not medically stable. Will attempt OT evaluation when medically appropriate.
--- NOTE | 2019-07-29 08:49 | PM.CNCAR ---
Assessment and Plan Assessment and plan (1) Unwitnessed fall: Code(s): R29.6 - Repeated falls Status: Acute (2) Femoral neck fracture: Qualifiers: Encounter type: subsequent encounter Fracture healing: with routine healing Fracture type: closed Laterality: right Qualified Code(s): S72.001D - Fracture of unspecified part of neck of right femur, subsequent encounter for closed fracture with routine healing Code(s): S72.009A - Fracture of unspecified part of neck of unspecified femur, initial encounter for closed fracture Status: Acute Assessment and Plan: 73-year-old female admitted to [facility] on 07/26/2019 via EMS after she had a fall. Pelvic x-ray showed New left subcapital femoral neck fracture. Patient is status post percutaneous pinning of left femoral neck. Postoperatively, patient has been delirious. Her CT scan of the head during hospitalization showed old infarct, no acute changes. She is awaiting MRI of the brain. (3) Right atrial mass: Code(s): I51.89 - Other ill-defined heart diseases Status: Acute Assessment and Plan: Echocardiogram which on my personal interpretation shows normal LV systolic function, right atrial mass. She does have a history of Port-A-Cath placement. Patient is currently delirious and is receiving breathing treatments. She is not clinically stable at this moment to undergo a transesophageal echocardiogram to evaluate the right atrial mass. At this time, recommend bilateral lower extremity venous Doppler to evaluate for any DVT. If there is no contraindication, would start patient on therapeutic dose of low molecular weight heparin after any intracranial bleed is ruled out on brain MRI. Once patient is clinically stable, will proceed with transesophageal echocardiogram. Management plan was discussed with Dr. Salazar. (4) Altered mental status: Qualifiers: Altered mental status type: unspecified Qualified Code(s): R41.82 - Altered mental status, unspecified Code(s): R41.82 - Altered mental status, unspecified Status: Acute History of Present Illness History of Present Illness Consult date/time: 07/29/19 08:49 Date of consult 07/29/2019 reason for consult: Evaluation of right atrial mass requesting physician:PATRICIA Blackman Chief complaint: Admitted to [facility] on 07/26/2019 after patient had a fall HPI: 73-year-old female with past medical history of CA lung and history of Port-A-Cath placement; no known prior cardiac history was admitted to [facility] on 07/26/2019 via EMS after she had a fall. Patient is currently delirious, information is gathered from the review of the notes and from the staff. Patient had stated that she was walking around her car when she tripped on her foot and fell. Upon arrival to the ER, patient had complained of left hip pain. Pelvic x-ray showed New left subcapital femoral neck fracture. Patient had not complained of any chest pain, shortness of breath, dizziness or syncope. Patient is status post percutaneous pinning of left femoral neck. Postoperatively, patient has been delirious. Her CT scan of the head during hospitalization showed old infarct, no acute changes. She is awaiting MRI of the brain. EKG on this admission which I personally evaluated shows sinus rhythm, left atrial enlargement, no acute ST segment abnormality. patient's echocardiogram from 07/28/2019 reported normal LV systolic function, mass in the right atrium, moderate pulmonary hypertension with RVSP 56 mmHg. I personally reviewed patient's echocardiogram. Cardiology has been consulted for further evaluation and consideration for transesophageal echocardiogram. CT scan of the chest did not show PE; showed Left Port-A-Cath catheter in superior vena cava. Review of old medical records indicate patient had echocardiogram done on 12/19/2016 which showed normal LV systolic function. Th
--- NOTE | 2019-07-29 08:52 | PCPTNOTE ---
Attempted PT evaluation. Hold PT this date, pt non-responsive per nurse. Will try again tomorrow.
--- NOTE | 2019-07-29 09:07 | WPDANESPN ---
Anes - Prog Note Post-Op Date/Time: 07/29/19 09:07 Cardiovascular status: normal Respiratory status: normal Airway patency: baseline Mental status: baseline Post-Op hydration status: normal Vital Signs: Last Vital Signs Temp 36.6 C 07/29/19 06:00 Pulse 100 07/29/19 06:00 Resp 16 07/29/19 06:00 BP 111/64 07/29/19 06:00 Pulse Ox 96 07/29/19 06:00 I/O: Intake & Output 07/28/19 07/29/19 07/29/19 23:59 07:59 15:59 Intake Total 507.5 100 Output Total 630 800 Balance -122.5 -700 Laboratory Tests 07/29/19 05:37 07/29/19 05:37 07/28/19 07/28/19 07/28/19 10:46 10:53 11:22 WBC RBC Hgb Hct MCV MCH MCHC RDW Plt Count MPV Immature Gran % (Auto) Neut % (Auto) Lymph % (Auto) [place] % (Auto) Eos % (Auto) Baso % (Auto) Lymph # (Auto) [place] # (Auto) Eos # (Auto) Baso # (Auto) Abs Immat Gran (auto) Absolute Neuts (auto) Absolute Nucleated RBC Nucleated RBC % Puncture Site Right radial ABG pH 7.432 ABG pCO2 37.7 ABG pO2 65.2 L ABG PO2/FiO2 Ratio 2.04 ABG HCO3 24.6 ABG O2 Saturation 93.5 L ABG O2 Content 14.7 L ABG Base Excess 0.5 A-a Gradient 118.9 Oxyhemoglobin 91.7 Total Hemoglobin 11.4 L O2 Delivery Device Nasal cannula O2 Liters/Min 3.0 FiO2 32 Sodium Potassium Chloride Carbon Dioxide BUN Creatinine Estim Creat Clear Calc Estimated GFR Glucose POC Capillary Glucose 101 Lactic Acid Calcium Phosphorus Magnesium Ammonia < 9 L 07/28/19 07/28/19 07/28/19 16:58 21:19 23:40 WBC RBC Hgb Hct MCV MCH MCHC RDW Plt Count MPV Immature Gran % (Auto) Neut % (Auto) Lymph % (Auto) [place] % (Auto) Eos % (Auto) Baso % (Auto) Lymph # (Auto) [place] # (Auto) Eos # (Auto) Baso # (Auto) Abs Immat Gran (auto) Absolute Neuts (auto) Absolute Nucleated RBC Nucleated RBC % Puncture Site ABG pH ABG pCO2 ABG pO2 ABG PO2/FiO2 Ratio ABG HCO3 ABG O2 Saturation ABG O2 Content ABG Base Excess A-a Gradient Oxyhemoglobin Total Hemoglobin O2 Delivery Device O2 Liters/Min FiO2 Sodium Potassium Chloride Carbon Dioxide BUN Creatinine Estim Creat Clear Calc Estimated GFR Glucose POC Capillary Glucose 107 134 H 133 H Lactic Acid Calcium Phosphorus Magnesium Ammonia 07/29/19 07/29/19 07/29/19 05:37 05:37 05:37 WBC 10.5 H RBC 3.23 L Hgb 8.7 L Hct 29.0 L MCV 89.8 MCH 26.9 MCHC 30.0 L RDW 15.7 H Plt Count 178 MPV 10.2 Immature Gran % (Auto) 0.5 Neut % (Auto) 86.6 H Lymph % (Auto) 7.6 L [place] % (Auto) 5.2 Eos % (Auto) 0.0 Baso % (Auto) 0.1 L Lymph # (Auto) 0.80 L [place] # (Auto) 0.6 Eos # (Auto) 0.0 Baso # (Auto) 0.0 Abs Immat Gran (auto) 0.05 H Absolute Neuts (auto) 9.1 H Absolute Nucleated RBC 0.0 Nucleated RBC % 0.0 Puncture Site ABG pH ABG pCO2 ABG pO2 ABG PO2/FiO2 Ratio ABG HCO3 ABG O2 Saturation ABG O2 Content ABG Base Excess A-a Gradient Oxyhemoglobin Total Hemoglobin O2 Delivery Device O2 Liters/Min FiO2 Sodium 135 L Potassium 4.4 Chloride 105 Carbon Dioxide 28 BUN 11 Creatinine 0.70 Estim Creat Clear Calc 52 Estimated GFR > 60 Glucose 128 H POC Capillary Glucose Lactic Acid 2.5 H Calcium 8.4 Phosphorus 2.9 Magnesium 2.3 Ammonia 07/29/19 06:43 WBC RBC Hgb Hct MCV MCH MCHC RDW Plt Count MPV Immature Gran % (Auto) Neut % (Auto) Lymph % (Auto) [place] % (Auto) Eos % (Auto) Baso % (Auto) Lymph # (Auto) [place] # (Auto) Eos # (Auto) Baso # (Auto) Abs Immat Gran (auto) Absolute Neuts (auto) Absolute Nucleated RBC Nucleated R
[2019-07-29] MEDS: levETIRAcetam IV 750 MG in DEXTROSE 5% 100 ML 430 MG IVPB ×2 (09:18→20:57)
[2019-07-29] MEDS: ERTAPENEM 1 GM/NS 50 ML 1 GM/50 ML BAG IVPB (11:27)
--- NOTE | 2019-07-29 12:27 | PM.PNORT ---
Progress Note: A&P Additional Plan pod 1 improving. continue current regimen Subjective Subjective Date/Time Seen: 07/29/19 12:27 pod 1 with pain controlled. she is more alert than preop. follows some commands. no calf pain Post Op day: 1 Exam Extrem: Other: vss afebrile dressing dry able to dorsiflex left foot on command calf soft neg homans sign Objective Data Vital Signs Vital Signs: Vital Signs - 24 hr 07/28/19 13:45 07/28/19 14:10 07/28/19 14:50 Temperature 37.1 C 37.5 C Pulse Rate 112 H 110 H 118 H Respiratory Rate 24 H 18 20 Blood Pressure 110/66 120/78 Pulse Oximetry 87 L 94 97 07/28/19 16:45 07/28/19 17:00 07/28/19 17:15 Temperature 36.8 C Pulse Rate 113 H 114 H 112 H Respiratory Rate 19 16 16 Blood Pressure 80/60 L 102/50 L 100/58 L Pulse Oximetry 97 98 94 07/28/19 17:30 07/28/19 17:45 07/28/19 18:00 Temperature 37.1 C Pulse Rate 112 H 112 H 122 H Respiratory Rate 20 18 18 Blood Pressure 101/67 111/63 117/60 Pulse Oximetry 93 95 91 07/28/19 18:15 07/28/19 18:45 07/28/19 19:45 Temperature 36.6 C 37.5 C 36.7 C Pulse Rate 123 H 127 H 125 H Respiratory Rate 20 18 16 Blood Pressure 113/64 117/66 129/68 Pulse Oximetry 91 91 90 07/28/19 20:00 07/28/19 20:38 07/28/19 20:58 Temperature Pulse Rate 132 H 117 H 115 H Respiratory Rate 18 18 Blood Pressure Pulse Oximetry 93 07/28/19 22:00 07/29/19 00:00 07/29/19 01:52 Temperature 36.7 C Pulse Rate 120 H 106 H 88 Respiratory Rate 20 18 Blood Pressure 125/69 Pulse Oximetry 94 07/29/19 02:00 07/29/19 02:02 07/29/19 04:00 Temperature 36.3 C L Pulse Rate 94 86 85 Respiratory Rate 12 18 Blood Pressure 100/57 L Pulse Oximetry 100 07/29/19 06:00 07/29/19 08:00 07/29/19 09:09 Temperature 36.6 C Pulse Rate 100 90 Respiratory Rate 16 Blood Pressure 111/64 Pulse Oximetry 96 97 07/29/19 09:10 07/29/19 09:18 Temperature Pulse Rate 95 95 Respiratory Rate 16 18 Blood Pressure Pulse Oximetry Intake/Output Intake/Output: Intake & Output 07/26/19 07/27/19 07/28/19 07/29/19 23:59 23:59 23:59 23:59 Intake Total 100 2812.0 1504.0 100 Output Total 550 880 800 Balance 100 2262.0 624.0 -700 Meds/Results Medications: Active Medications Generic Name Dose Route Start Last Admin Trade Name Freq PRN Reason Stop Dose Admin Diazepam 5 mg 07/28/19 16:47 Valium Po PO Q8H PRN Muscle Spasm Docusate Sodium 100 mg 07/28/19 17:00 07/29/19 09:24 Colace Capsule PO Not Given BID JAYASHREE Dornase [place] 2.5 mg 07/28/19 20:00 07/28/19 20:36 Pulmozyme INHALATION 2.5 mg Q12HRT JAYASHREE Administration Enoxaparin Sodium 60 mg 07/29/19 13:00 Lovenox SUB-Q Q12H JAYASHREE Levetiracetam 750 mg/ Dextrose 107.5 mls @ 430 mls/hr 07/27/19 10:15 07/29/19 09:33 IVPB 0 mls/hr Q12HR JAYASHREE Infusion Ertapenem 1 gm in 50 mls @ 100 mls/hr 07/28/19 13:10 07/29/19 11:57 Invanz 1 Gm/Ns 50 Ml IVPB 0 mls/hr QAM JAYASHREE Infusion Vancomycin HCl 1,000 mg in 250 mls @ 250 mls/hr 07/28/19 15:00 07/29/19 12:05 Vancomycin 1,000 Mg/D5w 250 Ml IVPB 250 mls/hr Q18H JAYASHREE Administration Potassium Chloride/Dextrose/Sod Cl 1,000 mls @ 80 mls/hr 07/28/19 16:50 07/28/19 21:55 Kcl 20 Meq/D5/0.45% Sod Chl IV CONT 80 mls/hr .[id number] JAYASHREE Administration Acetaminophen 1,000 mg in 100 mls @ 400 mls/hr 07/28/19 19:26 07/29/19 06:33 Ofirmev 1,000 Mg Ivpb IVPB 07/29/19 19:27 Infused Q6H PRN Infusion Pain 4-6 or Fever Ipratropium [place] 0.5 mg 07/27/19 14:00 07/29/19 09:07 Atrovent Neb INHALATION 0.5 mg Q6HRT JAYASHREE Administration Levalbuterol HCl 1.25 mg 07/27/19 14:00 07/29/19 09:06 Xopenex 1.25 Mg/0.5 Ml INHALATION 1.25 mg Q6HRT JAYASHREE Administration Magnesium Hydroxide 30 ml 07/28/19 16:47 Milk Of Magnesia PO BID PRN Constipation Morphine Sulfate 3 mg 07/28/19 16:47 Morphine Sulfate Inj IV PUSH
[2019-07-29] MEDS: ENOXAPARIN 60 MG/0.6 ML SYRINGE SUB-Q (12:53)
--- NOTE | 2019-07-29 14:31 | PCOTNOTE ---
OT evaluation attempted this PM. Patient awake, however, unable to follow simple commands or respond to any questions. Will attempt OT evaluation when medically appropriate.
--- NOTE | 2019-07-29 14:35 | PCPTNOTE ---
PT evaluation attempted this PM. Patient awake, however, unable to follow simple commands or respond to any questions. Will attempt PT evaluation when medically appropriate.
--- NOTE | 2019-07-29 14:52 | PCSTNOTE ---
Please refer to the Bedside Swallow Evaluation in the EMR.
[2019-07-29] MEDS: KCL 20 MEQ/D5/0.45% SOD CHL 1,000 ML 80 ML IV CONT (15:27)
--- NOTE | 2019-07-29 18:50 | PCRCNOTE ---
patient is unable to perform the IS so she was given the ezpap. Patient does poorly but was instructed to give a direcetd cough and did produce sputum.
[2019-07-29] MEDS: DORNASE ALFA INH SOLN 1 MG/ML 2.5 ML AMP 2.5 MG INHALATION (19:44)
[2019-07-30] VITALS (8 sets, daily range): BP systolic 137–138; BP diastolic 63–79; PULSE 105–115; RESP 16–22; TEMP 36.9–37.6; O2SAT 92–95
[2019-07-30] MEDS: ENOXAPARIN 60 MG/0.6 ML SYRINGE SUB-Q (00:24)
[2019-07-30] MEDS: IPRATROPIUM BR 0.02% INH SOLN 0.5 MG/2.5 ML VIAL INHALATION ×3 (01:16→14:51)
[2019-07-30] MEDS: KCL 20 MEQ/D5/0.45% SOD CHL 1,000 ML 80 ML IV CONT (04:56)
[2019-07-30 06:02] LABS: Hematocrit 25.4 % (37.0-47.0); Hemoglobin 7.9 g/dL (12.0-15.0); Mean Corpuscular HGB Conc 31.1 g/dl (32-36); Mean Corpuscular Hemoglobin 27.2 pg (26-34); Mean Corpuscular Volume 87.6 fl (80-100); Mean Platelet Volume 10.5 fl (7.4-10.4); Platelet Count Result 217 k/mm3 (150-375); White Blood Count 7.6 K/mm3 (4.5-10.0)
[2019-07-30 06:21] LABS: Blood Urea Nitrogen 12 mg/dL (7-17); Calcium 8.1 mg/dL (8.4-10.2); Carbon Dioxide 28 mmol/L (22-30); Chloride 107 mmol/L (98-107); Estimated CRCL calculation 85 ml/min; Estimated Glomerular Filt Rate > 60; Glucose 98 mg/dL (65-105); Potassium 3.9 mmol/L (3.4-5.0); Sodium 134 mmol/L (137-145)
[2019-07-30 07:00] LABS: CRP 20.2 mg/dL (<1.0)
--- NOTE | 2019-07-30 07:31 | PM.IMPN ---
Progress Note: A&P Assessment and Plan (1) Stroke: Qualifiers: CVA mechanism: unspecified Qualified Code(s): I63.9 - Cerebral infarction, unspecified Code(s): I63.9 - Cerebral infarction, unspecified Status: Acute Assessment and Plan: MRI c/w embolic strokes, acute Enoxaparin 55mg SC q [address] eval and tx (2) Altered mental status: Qualifiers: Altered mental status type: unspecified Qualified Code(s): R41.82 - Altered mental status, unspecified Code(s): R41.82 - Altered mental status, unspecified Status: Acute Assessment and Plan: CT brain with no acute intracranial abnormalities. History of old stroke. MRI brain with multiple small infarcts c/w embolic origin Anticoagulation with enoxaparin (3) Closed fracture of neck of left femur: Qualifiers: Encounter type: initial encounter Qualified Code(s): S72.002A - Fracture of unspecified part of neck of left femur, initial encounter for closed fracture Code(s): S72.002A - Fracture of unspecified part of neck of left femur, initial encounter for closed fracture Status: Acute Assessment and Plan: Left subcapital femoral neck fracture after a fall. It is reported she was walking outside to her car when she tripped and fell. No narcotics have been given since early yesterday morning, she is still altered this AM. See above. POD 1 from left hip ORIF (07/27) (4) Pneumonia: Qualifiers: Pneumonia type: due to unspecified organism Laterality: bilateral Lung location: unspecified part of lung Qualified Code(s): J18.9 - Pneumonia, unspecified organism Code(s): J18.9 - Pneumonia, unspecified organism Status: Acute Assessment and Plan: IV vancomycin and ertapenem. Continue nebulized bronchodilators and pulmozyme, supplemental O2. (5) Right atrial mass: Code(s): I51.89 - Other ill-defined heart diseases Status: Acute Assessment and Plan: Echocardiogram demonstrated a large mobile echogenic mass that is not well characterized noted in the right atrium. Cardiology consulted -appreciate recommendations. (6) COPD (chronic obstructive pulmonary disease): Qualifiers: COPD type: unspecified COPD Qualified Code(s): J44.9 - Chronic obstructive pulmonary disease, unspecified Code(s): J44.9 - Chronic obstructive pulmonary disease, unspecified Status: Chronic Assessment and Plan: Does not appear to be on any maintenance inhalers. CXR on arrival showed hyperinflation without consolidation or effusions and other chronic changes. Continue supplemental O2 as needed to keep oxygen saturations > 90%. Nebulized bronchodilators with atrovent and xopenex. Pulmozyme. CTA chest c/w pneumonia (7) Lung cancer: Qualifiers: Laterality: unspecified laterality Lung location: unspecified part of lung Qualified Code(s): C34.90 - Malignant neoplasm of unspecified part of unspecified bronchus or lung Code(s): C34.90 - Malignant neoplasm of unspecified part of unspecified bronchus or lung Status: Acute Assessment and Plan: Note in the EMR from Dr Puentes 04/16/19 reviewed. 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 Developed brain metastasis 2014 and received radiation therapy. (8) Focal seizure: Code(s): R56.9 - Unspecified convulsions Status: Chronic Assessment and Plan: On admission in May 2019, it was felt she had a seizure related to old stroke and she was started on Keppra. Continue Keppra. Seizure precautions. Subjective Date/time seen: 07/30/19 07:31 Interval hi
[2019-07-30] MEDS: levETIRAcetam IV 750 MG in DEXTROSE 5% 100 ML 125 MG IVPB (08:44)
[2019-07-30] MEDS: DORNASE ALFA INH SOLN 1 MG/ML 2.5 ML AMP 2.5 MG INHALATION (08:49)
[2019-07-30] MEDS: DOCUSATE SODIUM 100 MG CAPSULE PO (08:56)
[2019-07-30] MEDS: ERTAPENEM 1 GM/NS 50 ML 1 GM/50 ML BAG IVPB (09:03)
--- NOTE | 2019-07-30 09:06 | PCOTNOTE ---
Pt going down for swallow test. Will attempt OT evaluation at later time
--- NOTE | 2019-07-30 09:06 | PCPTNOTE ---
Attempted PT eval. Pt going for MBS. Will try again at later time.
--- NOTE | 2019-07-30 09:24 | PCSTNOTE ---
Attempted MBS this AM. Pt lethargic and demonstrated no awareness of a dry spoon presented to her lips. Pt deemed unsafe for oral trials. Will re-attempt when pt is more alert.
--- NOTE | 2019-07-30 10:01 | P.DS_ITS ---
DS: Diagnosis Admitting Diagnosis Admitting Diagnosis: Unspecified intracapsular fracture of left femur, initial e ncounter for closed fracture Discharge Diagnosis (1) Stroke: Qualifiers: CVA mechanism: unspecified Qualified Code(s): I63.9 - Cerebral infarction, unspecified Code(s): I63.9 - Cerebral infarction, unspecified Status: Acute Assessment and Plan: * MRI c/w embolic strokes, acute * Enoxaparin 55mg SC q 12 hours * ST eval and tx c/w inability to participate in MBS, recommends NPO * Sister, Berenice (POA), stated that patient would not want life support, including tube feeding. (2) Altered mental status: Qualifiers: Altered mental status type: unspecified Qualified Code(s): R41.82 - Altered mental status, unspecified Code(s): R41.82 - Altered mental status, unspecified Status: Acute Assessment and Plan: * CT brain with no acute intracranial abnormalities. History of old stroke. * MRI brain with multiple small infarcts c/w embolic origin * Anticoagulation with enoxaparin (3) Closed fracture of neck of left femur: Qualifiers: Encounter type: initial encounter Qualified Code(s): S72.002A - Fracture of unspecified part of neck of left femur, initial encounter for closed fracture Code(s): S72.002A - Fracture of unspecified part of neck of left femur, initial encounter for closed fracture Status: Acute Assessment and Plan: * Left subcapital femoral neck fracture after a fall. It is reported she was walking outside to her car when she tripped and fell. * No narcotics have been given since early yesterday morning, she is still altered this AM. See above. * POD 1 from left hip ORIF (07/27) (4) Pneumonia: Qualifiers: Pneumonia type: due to unspecified organism Laterality: bilateral Lung location: unspecified part of lung Qualified Code(s): J18.9 - Pneumonia, unspecified organism Code(s): J18.9 - Pneumonia, unspecified organism Status: Acute Assessment and Plan: * IV vancomycin and ertapenem. * Continue nebulized bronchodilators and pulmozyme, supplemental O2. (5) Right atrial mass: Code(s): I51.89 - Other ill-defined heart diseases Status: Acute Assessment and Plan: * Echocardiogram demonstrated a large mobile echogenic mass that is not well characterized noted in the right atrium. * Cardiology consulted -appreciate recommendations. (6) COPD (chronic obstructive pulmonary disease): Qualifiers: COPD type: unspecified COPD Qualified Code(s): J44.9 - Chronic obstructive pulmonary disease, unspecified Code(s): J44.9 - Chronic obstructive pulmonary disease, unspecified Status: Chronic Assessment and Plan: * Does not appear to be on any maintenance inhalers. CXR on arrival showed hyperinflation without consolidation or effusions and other chronic changes. * Continue supplemental O2 as needed to keep oxygen saturations > 90%. Nebulized bronchodilators with atrovent and xopenex. Pulmozyme. * CTA chest c/w pneumonia (7) Lung cancer: Qualifiers: Laterality: unspecified laterality Lung location: unspecified part of lung Qualified Code(s): C34.90 - Malignant neoplasm of unspecified part of unspecified bronchus or lung Code(s): C34.90 - Malignant neoplasm of unspecified part of unspecified bronchus or lung Status:
--- NOTE | 2019-07-30 10:01 | PM.DS ---
DS: Diagnosis Admitting Diagnosis Admitting Diagnosis: Unspecified intracapsular fracture of left femur, initial encounter for closed fracture Discharge Diagnosis (1) Stroke: Qualifiers: CVA mechanism: unspecified Qualified Code(s): I63.9 - Cerebral infarction, unspecified Code(s): I63.9 - Cerebral infarction, unspecified Status: Acute Assessment and Plan: MRI c/w embolic strokes, acute Enoxaparin 55mg SC q [address] eval and tx c/w inability to participate in MBS, recommends NPO Sister, Berenice (POA), stated that patient would not want life support, including tube feeding. (2) Altered mental status: Qualifiers: Altered mental status type: unspecified Qualified Code(s): R41.82 - Altered mental status, unspecified Code(s): R41.82 - Altered mental status, unspecified Status: Acute Assessment and Plan: CT brain with no acute intracranial abnormalities. History of old stroke. MRI brain with multiple small infarcts c/w embolic origin Anticoagulation with enoxaparin (3) Closed fracture of neck of left femur: Qualifiers: Encounter type: initial encounter Qualified Code(s): S72.002A - Fracture of unspecified part of neck of left femur, initial encounter for closed fracture Code(s): S72.002A - Fracture of unspecified part of neck of left femur, initial encounter for closed fracture Status: Acute Assessment and Plan: Left subcapital femoral neck fracture after a fall. It is reported she was walking outside to her car when she tripped and fell. No narcotics have been given since early yesterday morning, she is still altered this AM. See above. POD 1 from left hip ORIF (07/27) (4) Pneumonia: Qualifiers: Pneumonia type: due to unspecified organism Laterality: bilateral Lung location: unspecified part of lung Qualified Code(s): J18.9 - Pneumonia, unspecified organism Code(s): J18.9 - Pneumonia, unspecified organism Status: Acute Assessment and Plan: IV vancomycin and ertapenem. Continue nebulized bronchodilators and pulmozyme, supplemental O2. (5) Right atrial mass: Code(s): I51.89 - Other ill-defined heart diseases Status: Acute Assessment and Plan: Echocardiogram demonstrated a large mobile echogenic mass that is not well characterized noted in the right atrium. Cardiology consulted -appreciate recommendations. (6) COPD (chronic obstructive pulmonary disease): Qualifiers: COPD type: unspecified COPD Qualified Code(s): J44.9 - Chronic obstructive pulmonary disease, unspecified Code(s): J44.9 - Chronic obstructive pulmonary disease, unspecified Status: Chronic Assessment and Plan: Does not appear to be on any maintenance inhalers. CXR on arrival showed hyperinflation without consolidation or effusions and other chronic changes. Continue supplemental O2 as needed to keep oxygen saturations > 90%. Nebulized bronchodilators with atrovent and xopenex. Pulmozyme. CTA chest c/w pneumonia (7) Lung cancer: Qualifiers: Laterality: unspecified laterality Lung location: unspecified part of lung Qualified Code(s): C34.90 - Malignant neoplasm of unspecified part of unspecified bronchus or lung Code(s): C34.90 - Malignant neoplasm of unspecified part of unspecified bronchus or lung Status: Acute Assessment and Plan: Note in the EMR from Dr Puentes 04/16/19 reviewed. 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 Developed brain metastasis 2014 and received radiation therapy. (8) Focal seizure: Code(s): R56.9 - Unspecified convulsions Status: C
--- NOTE | 2019-07-30 10:01 | PM.PNCARD ---
Progress Note: A&P Assessment and Plan (1) Unwitnessed fall: Code(s): R29.6 - Repeated falls Status: Acute (2) Femoral neck fracture: Qualifiers: Encounter type: subsequent encounter Fracture type: closed Laterality: right Fracture healing: with routine healing Qualified Code(s): S72.001D - Fracture of unspecified part of neck of right femur, subsequent encounter for closed fracture with routine healing Code(s): S72.009A - Fracture of unspecified part of neck of unspecified femur, initial encounter for closed fracture Status: Acute Assessment and Plan: Admitted to [facility] on 07/26/2019 via EMS after she had a fall. Pelvic x-ray showed new left subcapital femoral neck fracture. Status post pinning of left femoral neck 07/28/2019. . (3) Right atrial mass: Code(s): I51.89 - Other ill-defined heart diseases Status: Acute Assessment and Plan: Echocardiogram which reviewed by Dr Jacques shows normal LV systolic function, right atrial mass. She does have a history of Port-A-Cath placement. She is not clinically stable at this moment to undergo a transesophageal echocardiogram to evaluate the right atrial mass. No lower extremity DVT MRI results as below. Once she is clinically stable, could consider transesophageal echocardiogram to further evaluate right atrial mass. (4) Altered mental status: Qualifiers: Altered mental status type: unspecified Qualified Code(s): R41.82 - Altered mental status, unspecified Code(s): R41.82 - Altered mental status, unspecified Status: Acute Assessment and Plan: Barely opens eyes to verbal and noxious stimuli. MRI 06/30/2019 revealed scattered punctate acute bilateral parietal centered infarction consistent with embolic etiology. No lower extremity DVT. Started on full-dose Lovenox. Time Spent With Patient Time: Plan discussed with Dr. Stephanie Cody 07/30/2019 Time with patient: less than 15 minutes Subjective Date/time seen: 07/30/19 10:01 Interval history: Follow-up for: Right atrial mass. Date of service: 07/30/2019 Subjective: Barely opens eyes to verbal and painful stimuli. Review of Systems Review of Systems: ROS unobtainable: unobtainable due to mental status Exam Const: General: patient obtunded Nutritional Appearance: thin Orientation/consciousness: patient obtunded HENMT: Head: normocephalic and atraumatic Ears: external ears normal General nose exam: Normal external nose present and no epistaxis Face and sinus: no ecchymosis Mouth: Yes tongue normal and Yes dry mucous membranes Eyes: Conjunctivae: conjunctivae normal Sclera: sclerae normal Neck: Neck: normal visual inspection, supple and no JVD Resp: Effort & Inspection: normal respiratory effort Auscultation: rhonchi throughout Other: Patient was taking breathing treatments at the time of physical examination, poor respiratory effort Cardio: Jugular venous distension: no JVD Rate: regular rate Rhythm: regular rhythm Heart sounds: S1 normal heart sound present and S2 normal heart sound present GI: Inspection: normal to inspection Auscultation: normal bowel sounds Urinary Catheter: Urinary Catheter: patent and draining and urine clear Skin: General skin exam: normal color Rashes: no rashes Neuro: General: patient obtunded Cranial nerves: Yes Equal, round and reactive pupils present Extrem: General: normal to inspection, no cyanosis and no edema Psych: Appearance: grossly normal Mental Status: mental status grossly normal Other: Obtunded Objective Data Vital Signs Vital Signs: Vital Signs - 24 hr 07/29/19 14:16 07/29/19 14:17 07/29/19 14:27 Temperature 37.0 C Pulse Rate 105 H 106 H 89 Respiratory Rate 16 18 18 Blood Pressure 116/60 Pulse Oximetry 91 07/29/19 19
--- NOTE | 2019-07-30 11:40 | PM.PNORT ---
Progress Note: A&P Assessment and Plan (1) Closed fracture of neck of left femur: Qualifiers: Encounter type: subsequent encounter Fracture healing: with routine healing Qualified Code(s): S72.002D - Fracture of unspecified part of neck of left femur, subsequent encounter for closed fracture with routine healing Code(s): S72.002A - Fracture of unspecified part of neck of left femur, initial encounter for closed fracture Status: Acute Assessment and Plan: Postoperative day 2. Left hip pinning. Patient appears comfortable. PT/OT as able to tolerate. Placement when medically stable. Subjective Subjective Date/Time Seen: 07/30/19 11:40 No changes in patient condition. Exam Extrem: Other: vss afebrile dressing dry able to dorsiflex left foot on command calf soft neg homans sign. Muscle compartments soft. Mild swelling. Objective Data Vital Signs Vital Signs: Vital Signs - 24 hr 07/29/19 14:16 07/29/19 14:17 07/29/19 14:27 Temperature 98.6 F Pulse Rate 105 H 106 H 89 Respiratory Rate 16 18 18 Blood Pressure 116/60 Pulse Oximetry 91 07/29/19 19:45 07/29/19 19:49 07/29/19 19:55 Temperature Pulse Rate 115 H 118 H Respiratory Rate 20 20 Blood Pressure Pulse Oximetry 95 07/29/19 22:00 07/30/19 01:16 07/30/19 01:23 Temperature 98.1 F Pulse Rate 117 H 112 H 114 H Respiratory Rate 16 22 H 22 H Blood Pressure 111/65 Pulse Oximetry 97 07/30/19 06:00 07/30/19 08:00 07/30/19 08:49 Temperature 98.4 F Pulse Rate 105 H 115 H 112 H Respiratory Rate 16 22 H 22 H Blood Pressure 137/63 Pulse Oximetry 95 93 07/30/19 08:51 07/30/19 08:58 Temperature Pulse Rate 115 H Respiratory Rate 22 H Blood Pressure Pulse Oximetry 93 Intake/Output Intake/Output: Intake & Output 07/27/19 07/28/19 07/29/19 07/30/19 23:59 23:59 23:59 23:59 Intake Total 2812.0 1504.0 1615.0 1350 Output Total 674 790 4382 400 Balance 2262.0 624.0 -235.0 950 Meds/Results Medications: Active Medications Generic Name Dose Route Start Last Admin Trade Name Freq PRN Reason Stop Dose Admin Diazepam 5 mg 07/28/19 16:47 Valium Po PO Q8H PRN Muscle Spasm Docusate Sodium 100 mg 07/28/19 17:00 07/30/19 08:56 Colace Capsule PO 100 mg BID JAYASHREE Administration Dornase Harvey 2.5 mg 07/28/19 20:00 07/30/19 08:49 Pulmozyme INHALATION 2.5 mg Q12HRT JAYASHREE Administration Enoxaparin Sodium 60 mg 07/29/19 13:00 07/30/19 00:24 Lovenox SUB-Q 60 mg Q12H JAYASHREE Administration Levetiracetam 750 mg/ Dextrose 107.5 mls @ 430 mls/hr 07/27/19 10:15 07/30/19 08:44 IVPB 125 mls/hr Q12HR JAYASHREE Administration Ertapenem 1 gm in 50 mls @ 100 mls/hr 07/28/19 13:10 07/30/19 09:03 Invanz 1 Gm/Ns 50 Ml IVPB 100 mls/hr QAM JAYASHREE Administration Vancomycin HCl 1,000 mg in 250 mls @ 250 mls/hr 07/28/19 15:00 07/30/19 04:02 Vancomycin 1,000 Mg/D5w 250 Ml IVPB Infused Q18H JAYASHREE Infusion Potassium Chloride/Dextrose/Sod Cl 1,000 mls @ 80 mls/hr 07/28/19 16:50 07/30/19 04:56 Kcl 20 Meq/D5/0.45% Sod Chl IV CONT 80 mls/hr .[id number] JAYASHREE Administration Acetaminophen 1,000 mg in 100 mls @ 400 mls/hr 07/30/19 03:33 07/30/19 05:11 Ofirmev 1,000 Mg Ivpb IVPB 07/31/19 03:34 Infused Q6H PRN Infusion Pain Rated 4-6 Ipratropium Bevier 0.5 mg 07/27/19 14:00 07/30/19 08:48 Atrovent Neb INHALATION 0.5 mg Q6HRT JAYASHREE Administration Levalbuterol HCl 1.25 mg 07/27/19 14:00 07/30/19 08:48 Xopenex 1.25 Mg/0.5 Ml INHALATION 1.25 mg Q6HRT JAYASHREE Administration Magnesium Hydroxide 30 ml 07/28/19 16:47 Milk Of Magnesia PO BID PRN Constipation Morphine Sulfate 3 mg 07/28/19 16:47 Morphine Sulfate Inj IV PUSH Q3H PRN Pain Rated 7-10 Naloxone HCl 0.1 mg 07/28/19 16:47 Narcan IV PUSH Q2M PRN Opiate Reversal Ondansetron HCl 4 mg 07/28/19 16:47 Zofran Inj IV
[2019-07-30 16:12] LABS: Vancomycin Trough 9.6 ug/mL (10.0-20.0)
== END 2019-07-30 15:02 | disposition hospice, inpatient (51) | DRG 480 ==
LOC: ANHED 16:13 → ANH3MEDSUR 17:28
PROVIDERS: Nurse Practitioner; Orthopaedic Surgery; Physician Assistant; Admitting Provider Hospitalist; Emergency Provider General Practice; PCP Internal Medicine; Visit Provider Internal Medicine
PROC: 0QS734Z Reposition Left Upper Femur with Internal Fixation Device, Percutaneous Approach (ICD-10-PCS; principal; 2019-07-28 15:00)
DX: S72.012A Unspecified intracapsular fracture of left femur, initial encounter for closed fracture (principal); J18.9 Pneumonia, unspecified organism; I63.40 Cerebral infarction due to embolism of unspecified cerebral artery; R41.82 Altered mental status, unspecified; W01.0XXA Fall on same level from slipping, tripping and stumbling without subsequent striking against object, initial encounter; R29.6 Repeated falls; D64.9 Anemia, unspecified; I51.89 Other ill-defined heart diseases; M19.90 Unspecified osteoarthritis, unspecified site; J44.9 Chronic obstructive pulmonary disease, unspecified; H40.9 Unspecified glaucoma; G62.9 Polyneuropathy, unspecified; I10 Essential (primary) hypertension; J30.1 Allergic rhinitis due to pollen; R01.1 Cardiac murmur, unspecified; R00.0 Tachycardia, unspecified; I69.398 Other sequelae of cerebral infarction; R56.9 Unspecified convulsions; Z66 Do not resuscitate; Z87.891 Personal history of nicotine dependence; Z85.841 Personal history of malignant neoplasm of brain; Z86.718 Personal history of other venous thrombosis and embolism; Z85.118 Personal history of other malignant neoplasm of bronchus and lung; Z90.710 Acquired absence of both cervix and uterus
CPT/HCPCS: 36415; 36600; 70450; 70551; 71045; 71275; 72125; 73080; 73130; 73521; 73564; 80048; 80053; 80202; 81001; 82140; 82805; 83605; 83735; 84100; 85025; 85027; 85610; 85730; 86140; 87040; 87086; 92610; 93005; 93306; 93970; 94640; 96374; 96375; 99285; A9270; C1713; C1769; J0131; J0330; J1100; J1335; J1650; J1953; J2270; J2370; J2405; J2704; J3010; J3370; J3475; J3480; J7030; J7120; Q9967

== ENCOUNTER 2019-07-30 15:03 | HOS | payer OTHER, MEDICARE, MEDICAID, SELFPAY ==
--- NOTE | 2019-07-30 16:51 | PM.IMHP ---
H&P: HPI History of Present Illness Chief complaint: Cerebral infarction unspecified Narrative: Catia Milligan is a 73 year old female with a history of small-cell lung cancer in remission. She was admitted for falling and confusion on July 25. She is found have a left hip fracture which was repaired on July 27. She was treated in the interim with IV Zosyn for possible aspiration versus urinary infection. She was found to have old strokes and atherosclerotic changes on initial CT of the brain on July 25. MRI of the brain showed bilateral showers of infarcts. Echocardiogram showed a large mobile right atrial mass. She was anticoagulated. However her ability to swallow and speak were impaired. She was unable to form intelligible words. She was unable to follow commands. She previously expressed to her sister who is her power of rubber tubing backer that she did not want any life-prolonging measures such as feeding tubes ventilators cardiopulmonary resuscitation or cardioversion. Because of this her sister chose inpatient hospice care for control of her restlessness and dyspnea. Review of Systems Review of Systems: ROS unobtainable: unobtainable due to mental condition PMFSH Past Medical History Medical History Anemia Arthritis Brain cancer Cataracts, bilateral Chronic headaches COPD (chronic obstructive pulmonary disease) CVA (cerebrovascular accident) DVT (deep venous thrombosis) Dyspnea Frequent falls Glaucoma H/O fracture of hip Hand fracture, right fracture HTN (hypertension) Lung cancer Peripheral neuropathy Pneumonia Port-A-Cath in place Seasonal allergies Stroke TIA (transient ischemic attack) UTI (urinary tract infection) Surgical History Surgical History Femoral neck fracture History of craniotomy removing tumor History of hip surgery Right hip pinning History of hysterectomy History of lung surgery History of tubal ligation Family History Family History Father Cerebrovascular accident Bladder cancer Mother Hypertension Sibling Hypertension Father Cerebrovascular accident Patient's father is Mother Family history of malignant neoplasm of kidney Acute myocardial infarction Other Cancer Social History Social History Social History: According to old records stated that she quit smoking in 2013. That she occasionally drinks 1 alcoholic beverage 1-2 drinks every 1-2 weeks. She tells me she occasionally drinks wine. She lives alone. From her old records patient has a daughter. And her sister is a durable power rubber tubing backer. full Code status . She is . Smoking packs per day: 1.5 Smoking cigarettes per day: 30.0 Years smoked: 41 Smoking pack-years: 61.50 Smoking status: Former smoker Tobacco type: cigarettes Second hand tobacco smoke exposure: No Smoking end date: 05/14/13 Alcohol intake: current Drinks per week: 1 Substance use: never Additional occupation/education comments: [employer] Gender identity (if verbalized by the patient): Female Spiritual care concerns: No Agree to blood products: Yes Meds Home Medications and Allergies Allergies Allergy/AdvReac Type Severity Reaction Status Date / Time tramadol Allergy Severe Unknown Verified 07/26/19 16:54 cyanocobalamin (vitamin B12) Allergy Intermediate HIVES Verified 07/26/19 16:54 Penicillins Allergy Intermediate HIVES Verified 07/26/19 16:54 codeine AdvReac Intermediate NAUSEA Verified 07/26/19 16:54 Exam Narrative: Exam Narrative: ENT: Sclerae nonicteric, PERRL, pharynx edentulous and dry Neck: no jvd Chest: coarse BS with scattered crackles Heart: NL S1,2 RR Extr no CCE Abd BS hypoactive, soft, nontender Neuro: CN grossl
[2019-07-30] MEDS: GLYCOPYRROLATE INJ (*SP) 0.2 MG/ML VIAL 0.1 MG IV PUSH (18:10)
[2019-07-30 21:39] VITALS: BP 109/57; PULSE 110; RESP 22; TEMP 37.2; O2SAT 92
[2019-07-30] MEDS: LORAZEPAM INJ 2 MG/ML VIAL 1 MG IV PUSH (22:43)
[2019-07-31 00:19] VITALS: PULSE 105; O2SAT 91
--- NOTE | 2019-07-31 10:25 | PM.IMPN ---
Progress Note: A&P Assessment and Plan (1) Palliative care by specialist: Code(s): Z51.5 - Encounter for palliative care Status: Acute Assessment and Plan: She requires general inpatient status due to severe impairment with PPS score of 10 and uncontrolled dyspnea and restlessness and aspiration of secretions Continue morphine at 0.5 milligram/hour with 2 mg every 2 hours as needed ordered, as well as p.r.n. IV lorazepam, glycopyrrolate, and prochlorperazine Monitor response and titrate to comfort (2) Stroke: Qualifiers: CVA mechanism: unspecified Qualified Code(s): I63.9 - Cerebral infarction, unspecified Code(s): I63.9 - Cerebral infarction, unspecified Status: Acute (3) Right atrial mass: Code(s): I51.89 - Other ill-defined heart diseases Status: Acute (4) Closed fracture of neck of left femur: Qualifiers: Encounter type: subsequent encounter Fracture healing: with routine healing Qualified Code(s): S72.002D - Fracture of unspecified part of neck of left femur, subsequent encounter for closed fracture with routine healing Code(s): S72.002A - Fracture of unspecified part of neck of left femur, initial encounter for closed fracture Status: Acute (5) Dysphagia: Qualifiers: Dysphagia type: oropharyngeal phase Qualified Code(s): R13.12 - Dysphagia, oropharyngeal phase Code(s): R13.10 - Dysphagia, unspecified Status: Acute (6) Altered mental status: Qualifiers: Altered mental status type: unspecified Qualified Code(s): R41.82 - Altered mental status, unspecified Code(s): R41.82 - Altered mental status, unspecified Status: Acute (7) Lung cancer: Qualifiers: Laterality: unspecified laterality Lung location: unspecified part of lung Qualified Code(s): C34.90 - Malignant neoplasm of unspecified part of unspecified bronchus or lung Code(s): C34.90 - Malignant neoplasm of unspecified part of unspecified bronchus or lung Status: Acute (8) COPD (chronic obstructive pulmonary disease): Qualifiers: COPD type: unspecified COPD Qualified Code(s): J44.9 - Chronic obstructive pulmonary disease, unspecified Code(s): J44.9 - Chronic obstructive pulmonary disease, unspecified Status: Chronic Subjective Date/time seen: 07/31/19 10:25 Interval history: F/u pallliative care. Review of Systems Review of Systems: ROS unobtainable: unobtainable due to mental condition Exam Narrative: Exam Narrative: ENT: Sclerae nonicteric, PERRL, pharynx edentulous and dry Neck: no jvd Chest: coarse BS with scattered crackles Heart: NL S1,2 RR Extr no CCE Abd BS hypoactive, soft, nontender Neuro: CN grossly symmetric, tone symmetric, diffuse weakness Psych: Drowsy, arouses faily easily, whispers no when asked if in pain Objective Data Vital Signs Vital Signs: Vital Signs - 24 hr 07/30/19 21:39 07/31/19 00:19 Temperature 99.0 F Pulse Rate 110 H 105 H Respiratory Rate 22 H Blood Pressure 109/57 L Pulse Oximetry 92 91 Intake/Output Intake/Output: Intake & Output 07/28/19 07/29/19 07/30/19 07/31/19 23:59 23:59 23:59 23:59 Intake Total 14 Output Total 550 Balance -536 Meds/Results Medications: Active Medications Generic Name Dose Route Start Last Admin Trade Name Freq PRN Reason Stop Dose Admin Acetaminophen 650 mg 07/30/19 15:49 Tylenol Suppository RECTAL Q4H PRN TEMP > 101 Bisacodyl 10 mg 07/30/19 15:48 Dulcolax Suppository RECTAL QAM PRN Constipation Glycopyrrolate 0.1 mg 07/30/19 15:50 07/30/19 18:10 Robinul Inj IV PUSH 0.1 mg Q4H PRN Administration EXCESS SECRETIONS Morphine Sulfate 50 mg/ Sodium 100 mls @ 1 mls/hr 07/30/19 16:00 07/31/19 06:29 Chloride IV CONT 0.5 mg/hr .Q24H JAYASHREE 1 mls/hr Infusion 0.5 MG/HR Lorazepam 1 mg 07/30/19 15:48
[2019-07-31] MEDS: GLYCOPYRROLATE INJ (*SP) 0.2 MG/ML VIAL 0.1 MG IV PUSH ×2 (12:18→20:24)
[2019-07-31 14:17] VITALS: BP 131/65; PULSE 115; RESP 20; TEMP 37.1; O2SAT 90
[2019-07-31 15:13] VITALS: PULSE 117; RESP 16; O2SAT 92
[2019-07-31 22:00] VITALS: BP 140/77; PULSE 126; RESP 24; TEMP 37.2; O2SAT 95
[2019-08-01] MEDS: LORAZEPAM INJ 2 MG/ML VIAL 1 MG IV PUSH (04:45)
[2019-08-01] MEDS: GLYCOPYRROLATE INJ (*SP) 0.2 MG/ML VIAL 0.1 MG IV PUSH (04:46)
--- NOTE | 2019-08-01 11:02 | PM.IMPN ---
Progress Note: A&P Assessment and Plan (1) Palliative care by specialist: Code(s): Z51.5 - Encounter for palliative care Status: Acute Assessment and Plan: She requires general inpatient status due to severe impairment with PPS score of 10 and uncontrolled dyspnea and restlessness and aspiration of secretions Continue morphine at 1 milligram/hour with 2 mg every 2 hours as needed ordered, as well as p.r.n. IV lorazepam, glycopyrrolate, and prochlorperazine Monitor response and titrate to comfort 07/31 d/w with POA, sister at bedside (2) Stroke: Qualifiers: CVA mechanism: unspecified Qualified Code(s): I63.9 - Cerebral infarction, unspecified Code(s): I63.9 - Cerebral infarction, unspecified Status: Acute (3) Right atrial mass: Code(s): I51.89 - Other ill-defined heart diseases Status: Acute (4) Closed fracture of neck of left femur: Qualifiers: Encounter type: subsequent encounter Fracture healing: with routine healing Qualified Code(s): S72.002D - Fracture of unspecified part of neck of left femur, subsequent encounter for closed fracture with routine healing Code(s): S72.002A - Fracture of unspecified part of neck of left femur, initial encounter for closed fracture Status: Acute (5) Dysphagia: Qualifiers: Dysphagia type: oropharyngeal phase Qualified Code(s): R13.12 - Dysphagia, oropharyngeal phase Code(s): R13.10 - Dysphagia, unspecified Status: Acute (6) Altered mental status: Qualifiers: Altered mental status type: unspecified Qualified Code(s): R41.82 - Altered mental status, unspecified Code(s): R41.82 - Altered mental status, unspecified Status: Acute (7) Lung cancer: Qualifiers: Laterality: unspecified laterality Lung location: unspecified part of lung Qualified Code(s): C34.90 - Malignant neoplasm of unspecified part of unspecified bronchus or lung Code(s): C34.90 - Malignant neoplasm of unspecified part of unspecified bronchus or lung Status: Acute (8) COPD (chronic obstructive pulmonary disease): Qualifiers: COPD type: unspecified COPD Qualified Code(s): J44.9 - Chronic obstructive pulmonary disease, unspecified Code(s): J44.9 - Chronic obstructive pulmonary disease, unspecified Status: Chronic Subjective Date/time seen: 08/01/19 11:30 Interval history: F/u pallliative care. 07/31 AM was restless and dyspneic. Resting comfortably since morphine was increased. Review of Systems Review of Systems: ROS unobtainable: unobtainable due to mental condition Exam Narrative: Exam Narrative: ENT: Sclerae nonicteric, PERRL, pharynx edentulous and dry Neck: no jvd Chest: coarse BS with scattered crackles Heart: NL S1,2 RR Extr no CCE Abd BS hypoactive, soft, nontender Neuro: CN grossly symmetric, tone symmetric, diffuse weakness Psych: Drowsy, arouses faily easily, whispers no when asked if in pain Objective Data Vital Signs Vital Signs: Vital Signs - 24 hr 07/31/19 14:17 07/31/19 15:13 07/31/19 22:00 Temperature 98.7 F 98.9 F Pulse Rate 115 H 117 H 126 H Respiratory Rate 20 16 24 H Blood Pressure 131/65 140/77 Pulse Oximetry 90 92 95 Intake/Output Intake/Output: Intake & Output 07/29/19 07/30/19 07/31/19 08/01/19 23:59 23:59 23:59 23:59 Intake Total 26.7 9.8 Output Total 1000 400 Balance -973.3 -390.2 Meds/Results Medications: Active Medications Generic Name Dose Route Start Last Admin Trade Name Freq PRN Reason Stop Dose Admin Acetaminophen 650 mg 07/30/19 15:49 Tylenol Suppository RECTAL Q4H PRN TEMP > 101 Bisacodyl 10 mg 07/30/19 15:48 Dulcolax Suppository RECTAL QAM PRN Constipation Glycopyrrolate 0.1 mg 07/30/19 15:50 08/01/19 04:46 Robinul Inj IV PUSH 0.1 mg Q4H PRN Administration EXCESS SECRETIONS Morphine Sulfate
[2019-08-01 15:18] VITALS: BP 130/61; PULSE 125; RESP 34; TEMP 38; O2SAT 91
[2019-08-01 21:25] VITALS: BP 119/56; PULSE 119; RESP 30; TEMP 37.1; O2SAT 90
--- NOTE | 2019-08-02 11:16 | PM.IMPN ---
Progress Note: A&P Assessment and Plan (1) Palliative care by specialist: Code(s): Z51.5 - Encounter for palliative care Status: Acute Assessment and Plan: She requires general inpatient status due to severe impairment with PPS score of 10 and uncontrolled dyspnea and restlessness and aspiration of secretions Continue morphine at 1 milligram/hour with 2 mg every 2 hours as needed ordered, as well as p.r.n. IV lorazepam, glycopyrrolate, and prochlorperazine Monitor response and titrate to comfort 07/31 d/w with POA, sister at bedside 08/01 continue current regimen (2) Stroke: Qualifiers: CVA mechanism: unspecified Qualified Code(s): I63.9 - Cerebral infarction, unspecified Code(s): I63.9 - Cerebral infarction, unspecified Status: Acute (3) Right atrial mass: Code(s): I51.89 - Other ill-defined heart diseases Status: Acute (4) Closed fracture of neck of left femur: Qualifiers: Encounter type: subsequent encounter Fracture healing: with routine healing Qualified Code(s): S72.002D - Fracture of unspecified part of neck of left femur, subsequent encounter for closed fracture with routine healing Code(s): S72.002A - Fracture of unspecified part of neck of left femur, initial encounter for closed fracture Status: Acute (5) Dysphagia: Qualifiers: Dysphagia type: oropharyngeal phase Qualified Code(s): R13.12 - Dysphagia, oropharyngeal phase Code(s): R13.10 - Dysphagia, unspecified Status: Acute (6) Altered mental status: Qualifiers: Altered mental status type: unspecified Qualified Code(s): R41.82 - Altered mental status, unspecified Code(s): R41.82 - Altered mental status, unspecified Status: Acute (7) Lung cancer: Qualifiers: Laterality: unspecified laterality Lung location: unspecified part of lung Qualified Code(s): C34.90 - Malignant neoplasm of unspecified part of unspecified bronchus or lung Code(s): C34.90 - Malignant neoplasm of unspecified part of unspecified bronchus or lung Status: Acute (8) COPD (chronic obstructive pulmonary disease): Qualifiers: COPD type: unspecified COPD Qualified Code(s): J44.9 - Chronic obstructive pulmonary disease, unspecified Code(s): J44.9 - Chronic obstructive pulmonary disease, unspecified Status: Chronic Subjective Date/time seen: 08/02/19 11:10 Interval history: F/u palliative care. 07/31 AM was restless and dyspneic. Resting comfortably since morphine was increased. 08/01 quiet night Exam Narrative: Exam Narrative: ENT: Sclerae nonicteric, PERRL, pharynx edentulous and dry Neck: no jvd Chest: coarse BS with scattered rhonchi Heart: NL S1,2 RR Extr no CCE Abd BS hypoactive, soft, nontender Neuro: CN grossly symmetric, tone symmetric, diffuse weakness Psych: Drowsy, arouses faily easily, whispers no when asked if in pain Objective Data Vital Signs Vital Signs: Vital Signs - 24 hr 08/01/19 15:18 08/01/19 21:25 Temperature 100.4 F H 98.8 F Pulse Rate 125 H 119 H Respiratory Rate 34 H 30 H Blood Pressure 130/61 119/56 L Pulse Oximetry 91 90 Intake/Output Intake/Output: Intake & Output 07/30/19 07/31/19 08/01/19 08/02/19 23:59 23:59 23:59 23:59 Intake Total 26.7 26.8 25 Output Total 1000 800 525 Balance -973.3 -773.2 -500 Meds/Results Medications: Active Medications Generic Name Dose Route Start Last Admin Trade Name Freq PRN Reason Stop Dose Admin Acetaminophen 650 mg 07/30/19 15:49 Tylenol Suppository RECTAL Q4H PRN TEMP > 101 Bisacodyl 10 mg 07/30/19 15:48 Dulcolax Suppository RECTAL QAM PRN Constipation Glycopyrrolate 0.1 mg 07/30/19 15:50 08/01/19 04:46 Robinul Inj IV PUSH 0.1 mg Q4H PRN Administration EXCESS SECRETIONS Morphine Sulfate 50 mg/ Sodium 100 mls @ 2 mls/hr 07/30/19 16:00 08/02/19 0
[2019-08-02 14:00] VITALS: BP 74/21; PULSE 88; RESP 28; TEMP 36.7; O2SAT 96
[2019-08-02 20:00] VITALS: BP 143/62; PULSE 100; RESP 24; TEMP 36.4; O2SAT 98
--- NOTE | 2019-08-03 11:07 | PM.IMPN ---
Progress Note: A&P Assessment and Plan (1) Palliative care by specialist: Code(s): Z51.5 - Encounter for palliative care Status: Acute Assessment and Plan: She requires general inpatient status due to severe impairment with PPS score of 10 and uncontrolled dyspnea and restlessness and aspiration of secretions Continue morphine at 1 milligram/hour with 2 mg every 2 hours as needed ordered, as well as p.r.n. IV lorazepam, glycopyrrolate, and prochlorperazine Monitor response and titrate to comfort 07/31 d/w with POA, sister at bedside 08/02 continue current regimen (2) Stroke: Qualifiers: CVA mechanism: unspecified Qualified Code(s): I63.9 - Cerebral infarction, unspecified Code(s): I63.9 - Cerebral infarction, unspecified Status: Acute (3) Right atrial mass: Code(s): I51.89 - Other ill-defined heart diseases Status: Acute (4) Dysphagia: Qualifiers: Dysphagia type: oropharyngeal phase Qualified Code(s): R13.12 - Dysphagia, oropharyngeal phase Code(s): R13.10 - Dysphagia, unspecified Status: Acute (5) Altered mental status: Qualifiers: Altered mental status type: unspecified Qualified Code(s): R41.82 - Altered mental status, unspecified Code(s): R41.82 - Altered mental status, unspecified Status: Acute (6) Lung cancer: Qualifiers: Laterality: unspecified laterality Lung location: unspecified part of lung Qualified Code(s): C34.90 - Malignant neoplasm of unspecified part of unspecified bronchus or lung Code(s): C34.90 - Malignant neoplasm of unspecified part of unspecified bronchus or lung Status: Acute (7) COPD (chronic obstructive pulmonary disease): Qualifiers: COPD type: unspecified COPD Qualified Code(s): J44.9 - Chronic obstructive pulmonary disease, unspecified Code(s): J44.9 - Chronic obstructive pulmonary disease, unspecified Status: Chronic (8) Closed fracture of neck of left femur: Qualifiers: Encounter type: subsequent encounter Fracture healing: with routine healing Qualified Code(s): S72.002D - Fracture of unspecified part of neck of left femur, subsequent encounter for closed fracture with routine healing Code(s): S72.002A - Fracture of unspecified part of neck of left femur, initial encounter for closed fracture Status: Acute Subjective Date/time seen: 08/03/19 10:30 Interval history: Nonverbal. Review of Systems Review of Systems: ROS unobtainable: unobtainable due to mental condition Exam Narrative: Exam Narrative: ENT: Sclerae nonicteric, PERRL, pharynx edentulous and dry Neck: no jvd Chest: coarse BS with scattered rhonchi Heart: NL S1,2 RR Extr no CCE Abd BS hypoactive, soft, nontender Neuro: CN grossly symmetric, tone symmetric, diffuse weakness Psych: Drowsy, arouses faily easily, does not respond to question or command Objective Data Vital Signs Vital Signs: Vital Signs - 24 hr 08/02/19 14:00 08/02/19 20:00 Temperature 98.0 F 97.6 F Pulse Rate 88 100 Respiratory Rate 28 H 24 H Blood Pressure 74/21 L 143/62 H Pulse Oximetry 96 98 Intake/Output Intake/Output: Intake & Output 07/31/19 08/01/19 08/02/19 08/03/19 23:59 23:59 23:59 23:59 Intake Total 26.7 26.8 49.4 23 Output Total 1000 800 775 300 Balance -973.3 -773.2 -725.6 -277 Meds/Results Medications: Active Medications Generic Name Dose Route Start Last Admin Trade Name Freq PRN Reason Stop Dose Admin Acetaminophen 650 mg 07/30/19 15:49 Tylenol Suppository RECTAL Q4H PRN TEMP > 101 Bisacodyl 10 mg 07/30/19 15:48 Dulcolax Suppository RECTAL QAM PRN Constipation Glycopyrrolate 0.1 mg 07/30/19 15:50 08/01/19 04:46 Robinul Inj IV PUSH 0.1 mg Q4H PRN Administration EXCESS SECRETIONS Morphine Sulfate 50 mg/ Sodium 100 mls @ 2 mls/hr 07/30/19 16:00 08/03/19 05:49
[2019-08-03 14:00] VITALS: BP 123/66; PULSE 103; RESP 28; TEMP 36.7; O2SAT 95
[2019-08-03] MEDS: GLYCOPYRROLATE INJ (*SP) 0.2 MG/ML VIAL 0.1 MG IV PUSH (14:14)
[2019-08-03 22:00] VITALS: BP 107/61; PULSE 102; RESP 20; TEMP 37.6; O2SAT 92
--- NOTE | 2019-08-04 14:42 | PM.IMPN ---
Progress Note: A&P Assessment and Plan (1) Palliative care by specialist: Code(s): Z51.5 - Encounter for palliative care Status: Acute Assessment and Plan: She requires general inpatient status due to severe impairment with PPS score of 10 and uncontrolled dyspnea and restlessness and aspiration of secretions Continue morphine at 1 milligram/hour with 2 mg every 2 hours as needed ordered, as well as p.r.n. IV lorazepam, glycopyrrolate, and prochlorperazine Monitor response and titrate to comfort 07/31 d/w with POA, sister at bedside 08/03 continue current regimen (2) Stroke: Qualifiers: CVA mechanism: unspecified Qualified Code(s): I63.9 - Cerebral infarction, unspecified Code(s): I63.9 - Cerebral infarction, unspecified Status: Acute (3) Right atrial mass: Code(s): I51.89 - Other ill-defined heart diseases Status: Acute (4) Dysphagia: Qualifiers: Dysphagia type: oropharyngeal phase Qualified Code(s): R13.12 - Dysphagia, oropharyngeal phase Code(s): R13.10 - Dysphagia, unspecified Status: Acute (5) Altered mental status: Qualifiers: Altered mental status type: unspecified Qualified Code(s): R41.82 - Altered mental status, unspecified Code(s): R41.82 - Altered mental status, unspecified Status: Acute (6) Lung cancer: Qualifiers: Laterality: unspecified laterality Lung location: unspecified part of lung Qualified Code(s): C34.90 - Malignant neoplasm of unspecified part of unspecified bronchus or lung Code(s): C34.90 - Malignant neoplasm of unspecified part of unspecified bronchus or lung Status: Acute (7) COPD (chronic obstructive pulmonary disease): Qualifiers: COPD type: unspecified COPD Qualified Code(s): J44.9 - Chronic obstructive pulmonary disease, unspecified Code(s): J44.9 - Chronic obstructive pulmonary disease, unspecified Status: Chronic (8) Closed fracture of neck of left femur: Qualifiers: Encounter type: subsequent encounter Fracture healing: with routine healing Qualified Code(s): S72.002D - Fracture of unspecified part of neck of left femur, subsequent encounter for closed fracture with routine healing Code(s): S72.002A - Fracture of unspecified part of neck of left femur, initial encounter for closed fracture Status: Acute Subjective Date/time seen: 08/04/19 08:50 Interval history: Nonverbal. Review of Systems Review of Systems: ROS unobtainable: unobtainable due to mental condition Exam Narrative: Exam Narrative: ENT: Sclerae nonicteric, PERRL, pharynx edentulous and dry Neck: no jvd Chest: coarse BS with scattered rhonchi Heart: NL S1,2 RR Extr no CCE Abd BS hypoactive, soft, nontender Neuro: CN grossly symmetric, tone symmetric, diffuse weakness Psych: Drowsy, arouses faily easily, does not respond to question or command Objective Data Vital Signs Vital Signs: Vital Signs - 24 hr 08/03/19 22:00 Temperature 99.6 F Pulse Rate 102 H Respiratory Rate 20 Blood Pressure 107/61 Pulse Oximetry 92 Intake/Output Intake/Output: Intake & Output 08/01/19 08/02/19 08/03/19 08/04/19 23:59 23:59 23:59 23:59 Intake Total 26.8 49.4 97.5 24 Output Total 800 775 700 300 Balance -773.2 -725.6 -602.5 -276 Meds/Results Medications: Active Medications Generic Name Dose Route Start Last Admin Trade Name Freq PRN Reason Stop Dose Admin Acetaminophen 650 mg 07/30/19 15:49 Tylenol Suppository RECTAL Q4H PRN TEMP > 101 Bisacodyl 10 mg 07/30/19 15:48 Dulcolax Suppository RECTAL QAM PRN Constipation Glycopyrrolate 0.1 mg 07/30/19 15:50 08/03/19 14:14 Robinul Inj IV PUSH 0.1 mg Q4H PRN Administration EXCESS SECRETIONS Morphine Sulfate 50 mg/ Sodium 100 mls @ 2 mls/hr 07/30/19 16:00 08/04/19 04:55 Chloride IV CONT 1 mg/hr .Q24H JAYASHREE 2
[2019-08-04] MEDS: LORAZEPAM INJ 2 MG/ML VIAL 1 MG IV PUSH (20:45)
[2019-08-04 22:00] VITALS: BP 129/64; PULSE 116; RESP 14; TEMP 36.4; O2SAT 94
[2019-08-04] MEDS: GLYCOPYRROLATE INJ (*SP) 0.2 MG/ML VIAL 0.1 MG IV PUSH (22:14)
[2019-08-04] MEDS: MORPHINE SULFATE 2 MG/ML INJ IV PUSH (22:25)
[2019-08-05] MEDS: MORPHINE SULFATE 2 MG/ML INJ IV PUSH (00:23)
--- NOTE | 2019-08-05 07:35 | PM.IMPN ---
Progress Note: A&P Assessment and Plan (1) Palliative care by specialist: Code(s): Z51.5 - Encounter for palliative care Status: Acute Assessment and Plan: She requires general inpatient status due to severe impairment with PPS score of 10 and uncontrolled dyspnea and restlessness and aspiration of secretions Continue morphine at 1 milligram/hour with 2 mg every 2 hours as needed ordered, as well as p.r.n. IV lorazepam, glycopyrrolate, and prochlorperazine Monitor response and titrate to comfort 07/31 d/w with POA, sister at bedside 08/03 continue current regimen 08/04 increased morphine to 2mg/hr (2) Stroke: Qualifiers: CVA mechanism: unspecified Qualified Code(s): I63.9 - Cerebral infarction, unspecified Code(s): I63.9 - Cerebral infarction, unspecified Status: Acute (3) Right atrial mass: Code(s): I51.89 - Other ill-defined heart diseases Status: Acute (4) Dysphagia: Qualifiers: Dysphagia type: oropharyngeal phase Qualified Code(s): R13.12 - Dysphagia, oropharyngeal phase Code(s): R13.10 - Dysphagia, unspecified Status: Acute (5) Altered mental status: Qualifiers: Altered mental status type: unspecified Qualified Code(s): R41.82 - Altered mental status, unspecified Code(s): R41.82 - Altered mental status, unspecified Status: Acute (6) Lung cancer: Qualifiers: Laterality: unspecified laterality Lung location: unspecified part of lung Qualified Code(s): C34.90 - Malignant neoplasm of unspecified part of unspecified bronchus or lung Code(s): C34.90 - Malignant neoplasm of unspecified part of unspecified bronchus or lung Status: Acute (7) COPD (chronic obstructive pulmonary disease): Qualifiers: COPD type: unspecified COPD Qualified Code(s): J44.9 - Chronic obstructive pulmonary disease, unspecified Code(s): J44.9 - Chronic obstructive pulmonary disease, unspecified Status: Chronic (8) Closed fracture of neck of left femur: Qualifiers: Encounter type: subsequent encounter Fracture healing: with routine healing Qualified Code(s): S72.002D - Fracture of unspecified part of neck of left femur, subsequent encounter for closed fracture with routine healing Code(s): S72.002A - Fracture of unspecified part of neck of left femur, initial encounter for closed fracture Status: Acute Subjective Date/time seen: 08/05/19 07:35 Interval history: Nonverbal, but moaning Review of Systems Review of Systems: ROS unobtainable: unobtainable due to mental condition Exam Narrative: Exam Narrative: ENT: Sclerae nonicteric, PERRL, pharynx edentulous and dry Neck: no jvd Chest: coarse BS with scattered rhonchi Heart: NL S1,2 RR Extr no CCE Abd BS hypoactive, soft, nontender Neuro: CN grossly symmetric, tone symmetric, diffuse weakness Psych: Drowsy, arouses faily easily, does not respond to question or command Objective Data Vital Signs Vital Signs: Vital Signs - 24 hr 08/04/19 22:00 Temperature 97.5 F L Pulse Rate 116 H Respiratory Rate 14 Blood Pressure 129/64 Pulse Oximetry 94 Intake/Output Intake/Output: Intake & Output 08/02/19 08/03/19 08/04/19 08/05/19 23:59 23:59 23:59 23:59 Intake Total 49.4 97.5 52 Output Total 775 700 300 250 Balance -725.6 -602.5 -248 -250 Meds/Results Medications: Active Medications Generic Name Dose Route Start Last Admin Trade Name Freq PRN Reason Stop Dose Admin Acetaminophen 650 mg 07/30/19 15:49 Tylenol Suppository RECTAL Q4H PRN TEMP > 101 Bisacodyl 10 mg 07/30/19 15:48 Dulcolax Suppository RECTAL QAM PRN Constipation Glycopyrrolate 0.1 mg 07/30/19 15:50 08/04/19 22:14 Robinul Inj IV PUSH 0.1 mg Q4H PRN Administration EXCESS SECRETIONS Morphine Sulfate 50 mg/ Sodium 100 mls @ 2 mls/hr 07/30/19 16:00 08/04/19 16:42
[2019-08-05] MEDS: MORPHINE SULFATE 2 MG/ML INJ 4 MG IV PUSH (08:24)
[2019-08-05 14:00] VITALS: BP 73/46; PULSE 142; RESP 14; TEMP 36.7; O2SAT 92
[2019-08-05] MEDS: LORAZEPAM INJ 2 MG/ML VIAL 1 MG IV PUSH (16:11)
[2019-08-05 22:00] VITALS: BP 80/48; PULSE 134; RESP 14; TEMP 37.8; O2SAT 92
[2019-08-05 22:13] VITALS: TEMP 38.4
[2019-08-05] MEDS: ACETAMINOPHEN 650 MG SUPPOSITORY RECTAL (22:13)
[2019-08-05 23:13] VITALS: TEMP 37.7
[2019-08-06] MEDS: LORAZEPAM INJ 2 MG/ML VIAL 1 MG IV PUSH (04:18)
[2019-08-06] MEDS: MORPHINE SULFATE 2 MG/ML INJ 4 MG IV PUSH (06:02)
[2019-08-06 08:00] VITALS: PULSE 134; RESP 14; O2SAT 92
--- NOTE | 2019-08-06 21:25 | PM.DDS ---
Discharge Sum: Prov Provider Primary care physician: Dagoberto Medrano DO Admitting provider: Jake Salazar MD Discharge Sum: Diag PCOD CVA Contributing Factors (1) Palliative care by specialist: (2) Pneumonia: (3) Lung cancer: (4) Right atrial mass: (5) COPD (chronic obstructive pulmonary disease): (6) Closed fracture of neck of left femur: Discharge Sum: Summary Date and Time Date of admission: 07/30/19 15:03 Date of : 08/06/19 Time of : 13:55 Summary Details: Date and time of patient contact: 08/06/2019 at 8:15 a.m. The patient was initially admitted to hospital July 15 due to confusion and a fall. She had imaging which demonstrated a left hip fracture and a CT scan which demonstrated old strokes and atherosclerosis. Due to her confusion she was treated with Zosyn for possible aspiration pneumonia versus urinary tract infection. She had her hip fracture repaired on the . MRI of the brain demonstrated bilateral shower infarcts and echo demonstrated a large mobile right atrial mass. She was placed on anticoagulation. However she had dysphagia and had impaired swallowing and ability to speak. She was not able to form intelligible words. She was unable to follow commands. She had expressed her [id number] that she did not want any lifelong procedures such as feeding tubes or ventilators. Subsequently the patient's sister chose in-patient hospice care on 07/30/2019 due to the patient's restlessness and dyspnea. Score of 10 and uncontrolled dyspnea. She had aspiration of secretions and difficulty breathing. She was initiated on morphine drip half a mg an hour with 2 mg every 2 hours as needed as well as p.r.n. lorazepam, glycopyrrolate and antiemetics. Titrated up as needed and other p.r.n. is a were continued. The patient was evaluated by me on the day of her at around 8:15 a.m.. Vitals: No temperature recorded on tail of my evaluation, heart rate was 134 respiratory rate 8 while I was at bedside pulse ox 92% on 2 L nasal cannula GENERAL: Frail, cachectic, elderly HEENT: Mucous membranes dry, sunken cheeks, head is normocephalic atraumatic, nares patent, nasal cannula in place CARDIOVASCULAR: Tachycardic, weak pulses, hypotension RESPIRATORY: Periods of apnea interspersed with tachypnea, coarse breath sounds ABDOMEN: Hypoactive bowel sounds, nontender INTEGUMENT: Generalized pallor, hot to touch NEUROLOGIC: Sedated, responsive to painful stimuli PSYCHIATRIC: Unable to assess EXTREMITIES: No clubbing, cyanosis or edema : Almost no urine output in [place] Additional Data Confirmation of as documented by pronouncing clinician: no pulse, no respirations, no heart sounds and pupils fixed and dilated Additional persons at bedside: healthcare social worker and other (Hospice) Attending/PCP notified?: Yes Attending physician: Rita Vincent DO Was code activated?: No Autopsy requested?: No principal examiner notified?: Yes Organ bank notified?: Yes Advance directives: Yes Hospice patient?: Yes (Omar)
== END 2019-08-06 16:58 | disposition expired | DRG 66 ==
PROVIDERS: Admitting Provider Internal Medicine; PCP Internal Medicine; Visit Provider Internal Medicine
DX: I63.50 Cerebral infarction due to unspecified occlusion or stenosis of unspecified cerebral artery (principal); Z51.5 Encounter for palliative care; Z86.73 Personal history of transient ischemic attack (TIA), and cerebral infarction without residual deficits; Z90.710 Acquired absence of both cervix and uterus; Z87.891 Personal history of nicotine dependence; I51.89 Other ill-defined heart diseases; S72.002D Fracture of unspecified part of neck of left femur, subsequent encounter for closed fracture with routine healing; R13.12 Dysphagia, oropharyngeal phase; Z85.118 Personal history of other malignant neoplasm of bronchus and lung; T17.990A Other foreign object in respiratory tract, part unspecified in causing asphyxiation, initial encounter
CPT/HCPCS: A9270; J2060; J2270